=== PATIENT | female | born 1960 | race Caucasian/White ===

== ENCOUNTER → 2016-09-09 | Emergency (ER) | payer SELFPAY ==
[~2016-09-09] MED LIST: ACETAMINOPHEN 325 MG TABLET (FP) ONE; CALCIUM CARBONATE 650 MG TABLET PO ONE; CALCIUM GLUCONATE 10% - 1,000 MG/10 ML VIAL IVPB ONE; CALCIUM GLUCONATE 10% - 1,000 MG/10 ML VIAL ONE; CHOLECALCIFEROL (VITAMIN D3) 1,000 UNIT TABLET (FP) PO ONE; LOPERAMIDE HCL 2 MG CAPSULE ONE; LOPERAMIDE HCL 2 MG CAPSULE PO ONE; ONDANSETRON 4 MG/2 ML VIAL IVPUSH ONE; ONDANSETRON 8 MG TABLET (FP) PO ONE; POTASSIUM CHLORIDE TABS 10 MEQ TABLET.ER (FP) ONE; POTASSIUM CHLORIDE TABS 10 MEQ TABLET.ER (FP) PO ONE; SODIUM CHLORIDE 0.9% 1000 ML INFUS.BAG IV ONE
[2016-09-09 15:54] VITALS: TEMP 97.8; BMI 29.2
[2016-09-09 20:27] LABS: BASOPHIL 0.3 % (0-2.0); EOSINOPHIL 0.4 % (0-4.5); MCHC 33.7 g/dl (32.0-36.0); MEAN CELL VOLUME 85.9 fl (80-96); MEAN PLT VOLUME 7.5 fl (7.5-11.1); NEUTROPHILS 53.1 % (42.8-82.8); PLATELET COUNT 280 K/MM3 (134-434); RDW 13.4 % (11.6-15.6); WHITE BLOOD COUNT 10.9 K/mm3 (4.0-10.0)
[2016-09-09 21:36] VITALS: BP 149/85; PULSE 75
--- NOTE | 2016-09-09 21:42 | PDOC ---
History of Present Illness - General Chief Complaint: Diarrhea Stated Complaint: VOMITING Time Seen by Provider: 09/09/16 19:31 - History of Present Illness Initial Comments: 09/09/16 21:26 CHIEF COMPLAINT: diarrhea HISTORY OF PRESENT ILLNESS: 56 yo F with hx of IDDM, hypothyroidism presents to ED with diarrhea x 3 days. Patient reports that she has had countless episodes of diarrhea and a few episodes of vomiting. She has had a loss of appetite over the past few days and feels a little weak now. Her last bowel movement was here in this ER. She did not eat anything today but yesterday and the day before she had chicken tacos and rice and chicken. She denies any fever, chills , shortness of breath, chest pain, dizziness, rectal bleeding. No recent travel or sick contacts. PAST MEDICAL HISTORY: Denies past medical history FAMILY HISTORY: Denies SOCIAL HISTORY: Denies tobacco, alcohol, illicit drug use. SURGICAL HISTORY: cholecystectomy, tubal ligation ALLERGIES: No known drug allergies REVIEW OF SYSTEMS General/Constitutional: Weakness. Denies fever or chills. HEENT: Denies change in vision. Denies ear pain or discharge. Denies sore throat. Cardiovascular: Denies chest pain or shortness of breath. Respiratory: Denies cough, wheezing, or hemoptysis. Gastrointestinal: Vomiting and diarrhea x 3 days. Denies rectal bleeding. Genitourinary: Denies dysuria, frequency, or change in urination. Musculoskeletal: Denies joint or muscle swelling or pain. Denies neck or back pain. Skin: Denies rash or easy bruising. Neurologic: Denies headache, vertigo, loss of consciousness, or loss of sensation. PHYSICAL EXAM General Appearance: Well-appearing, appropriately dressed. No apparent distress. HEENT: EOMI, PERRLA, normal ENT inspection, normal voice, TMs normal, pharynx normal. No conjunctival pallor. No photophobia, scleral icterus. Respiratory/Chest: Lungs CTAB. Cardiovascular: RRR. S1, S2. Gastrointestinal/Abdominal: Normal bowel sounds. Abdomen soft, non-distended. No tenderness or rebound tenderness. No organomegaly, pulsatile mass, guarding, hernia, hepatomegaly, splenomegaly. Musculoskeletal/Extremities: Normal inspection. FROM of all extremities, normal capillary refill. Pelvis Stable. No CVA tenderness. No tenderness to extremities, pedal edema, swelling, erythema or deformity. Integumentary: Appropriate color, dry, warm. No cyanosis, erythema, jaundice or rash Neurologic: rehabilitation therapy aide II-XII intact. Fully oriented, alert. Appropriate mood/affect. Motor strength 5/5. No appreciable EOM palsy, facial droop or sensory deficit. 09/09/16 23:40 Past History - Past Medical History Allergies/Adverse Reactions: Allergies Allergy/AdvReac Type Severity Reaction Status Date / Time No Known Allergies Allergy Verified 09/09/16 15:54 Home Medications: Ambulatory Orders Calcium Carbonate/Vitamin D3 [Calcium 600 + Vit D 400 Softgl] 1 tab PO DAILY Levothyroxine [Synthroid -] 175 mcg PO DAILY 09/09/16 Loperamide HCl [Imodium -] 2 mg PO Q8H PRN #21 capsule 09/09/16 Metformin HCl [Glucophage] 1,000 mg PO BID 09/09/16 Diabetes: Yes Thyroid Disease: Yes - Surgical History Abdominal Surgery: (TUBAL) Cholecystectomy: Yes - Psycho/Social/Smoking Cessation Hx Suicidal Ideation: No Smoking History: Never smoked Information on smoking cessation initiated: No *Physical Exam - Vital Signs Last Vital Signs Temp Pulse Resp BP Pulse Ox 97.8 F 82 18 136/86 98 09/09/16 15:50 09/09/16 15:50 09/09/16 15:50 09/09/16 15:50 09/09/16 15:50 ED Treatment Course - LABORATORY CBC & Chemistry Diagram: 09/09/16 19:55 09/09/16 22:25 - ADDITIONAL ORDERS Additional order review: Laboratory Results 09/09/16 19:55 Sodium Cancelled Potassium Cancelled Chloride Cancelled Carbon Dioxide Cancelled Anion Gap Cancelled BUN Cancelled Creatinine Cancelled Creat Clearance w eGFR Cancelled Random Glucose Cancelled Calcium Cancelled Total Bilirubin Cancelled AST Cancelled ALT Cancelled Alkaline Phosphatase Cancelled Total Protein Cancelled Albumin Cancelled 09/09/16 19:55 RBC 4.80 MCV 85.9 MCHC 33.7 RDW 13.4 MPV 7.5 Neutrophils % 53.1 Lymphocytes % 40.9 H Monocytes % 5.3 Eosinophils % 0.4 Basophils % 0.3 - Medications Given in the ED: ED Medications Discontinued Medications Generic Name Dose Route Start Last Admin Trade Name Freq PRN Reason Stop Dose Admin Loperamide HCl 4 mg 09/09/16 20:20 09/09/16 20:35 Imodium - PO 09/09/16 20:21 4 mg ONCE ONE Administration Ondansetron HCl 8 mg 09/09/16 20:20 09/09/16 20:35 Zofran Injection IVPUSH 09/09/16 20:21 8 mg ONCE ONE Administration Sodium Chloride 1,000 ml 09/09/16 19:37 09/09/16 20:08 Normal Saline - IV 09/09/16 19:38 1,000 ml ONCE ONE Administration Medical Decision Making - Medical Decision Making 09/09/16 23:40 56 yo F with hx of IDDM, hypothyroidism presents to ED with diarrhea x 3 days. -CBC, CMP -IVF, Zofran, Immodium Labs: WBC 10.9, K 3.4, Ca 6.6 -Calcium carbonate, Vit D -KCl Advised patient to take medication as prescribe and follow up with PCP for further evaluation of electrolyte abnormalities. Advised patient of signs and symptoms for return to ER; patient verbalized understanding and agrees to plan. *DC/Admit/Observation/Transfer Diagnosis at time of Disposition: Gastroenteritis - Discharge Dispostion Disposition: HOME Condition at time of disposition: Improved Admit: No - Prescriptions Prescriptions: Loperamide HCl [Imodium -] 2 mg PO Q8H PRN #21 capsule PRN Reason: Diarrhea - Patient Instructions Printed Discharge Instructions: DI for Viral Gastroenteritis -- Adult Additional Instructions: Please take medication as prescribed and follow up with your primary care doctor this week for further evaluation of your low calcium. You need to start taking supplements for this. If you experience any dizziness, lightheadeness, chest pain, shortness of breath, or you are unable to tolerate any food or fluids even after taking the medication prescribed, please return to the ER.
[2016-09-09 21:53] LABS: URINE APPEARANCE CLEAR; URINE BILIRUBIN NEGATIVE (NEGATIVE); URINE BLOOD NEGATIVE (NEGATIVE); URINE COLOR LTYELLOW; URINE GLUCOSE (UA) NEGATIVE (NEGATIVE); URINE KETONE 1+ (NEGATIVE); URINE NITRITE NEGATIVE (NEGATIVE); URINE PROTEIN NEGATIVE (NEGATIVE); URINE UROBILINOGEN NEGATIVE E.U./dl (0.2-1.0)
[2016-09-09 22:05] LABS: URINE LEUK ESTERASE 1+ (NEGATIVE)
[2016-09-09 22:07] LABS: URINE MUCUS FEW; URINE RBC 2 /hpf (0-3); URINE WBC 20 /hpf (3-5)
--- NOTE | 2016-09-09 23:09 | PDOC ---
[id number] 98 09/09/16 15:50 09/09/16 21:35 09/09/16 21:35 09/09/16 21:35 09/09/16 21:35 ED Treatment Course - LABORATORY CBC & Chemistry Diagram: 09/09/16 19:55 09/09/16 22:25 - ADDITIONAL ORDERS Additional order review: Laboratory Results 09/09/16 09/09/16 21:42 19:55 Sodium Cancelled Potassium Cancelled Chloride Cancelled Carbon Dioxide Cancelled Anion Gap Cancelled BUN Cancelled Creatinine Cancelled Creat Clearance w eGFR Cancelled Random Glucose Cancelled Calcium Cancelled Total Bilirubin Cancelled AST Cancelled ALT Cancelled Alkaline Phosphatase Cancelled Total Protein Cancelled Albumin Cancelled Urine Color Ltyellow Urine Appearance Clear Urine pH 5.0 Urine Protein Negative Urine Glucose (UA) Negative Urine Ketones 1+ H Urine Blood Negative Urine Nitrite Negative Urine Bilirubin Negative Urine Urobilinogen Negative Ur Leukocyte Esterase 1+ H Urine RBC 2 Urine WBC 20 Ur Epithelial Cells Rare Urine Mucus Few 09/09/16 19:55 RBC 4.80 MCV 85.9 MCHC 33.7 RDW 13.4 MPV 7.5 Neutrophils % 53.1 Lymphocytes % 40.9 H Monocytes % 5.3 Eosinophils % 0.4 Basophils % 0.3 - Medications Given in the ED: ED Medications Discontinued Medications Generic Name Dose Route Start Last Admin Trade Name Freq PRN Reason Stop Dose Admin Loperamide HCl 4 mg 09/09/16 20:20 09/09/16 20:35 Imodium - PO 09/09/16 20:21 4 mg ONCE ONE Administration Ondansetron HCl 8 mg 09/09/16 20:20 09/09/16 20:35 Zofran Injection IVPUSH 09/09/16 20:21 8 mg ONCE ONE Administration Sodium Chloride 1,000 ml 09/09/16 19:37 09/09/16 20:08 Normal Saline - IV 09/09/16 19:38 1,000 ml ONCE ONE Administration Medical Decision Making - Medical Decision Making 09/09/16 23:09 agree with care from CHRISTO Elizondo *DC/Admit/Observation/Transfer Diagnosis at time of Disposition: Gastroenteritis - Discharge Dispostion Disposition: HOME Condition at time of disposition: Improved - Prescriptions Prescriptions: Loperamide HCl [Imodium -] 2 mg PO Q8H PRN #21 capsule PRN Reason: Diarrhea - Patient Instructions Printed Discharge Instructions: DI for Viral Gastroenteritis -- Adult Additional Instructions: Please take medication as prescribed and follow up with your primary care doctor this week for further evaluation of your low calcium. You need to start taking supplements for this. If you experience any dizziness, lightheadeness, chest pain, shortness of breath, or you are unable to tolerate any food or fluids even after taking the medication prescribed, please return to the ER.
[2016-09-09 23:28] LABS: ALBUMIN 2.9 g/dl (3.4-5.0); ANION GAP 15 (8-16); CO2 20 mmol/L (21-32); COCKROFT - GAULT 230.2565; CREATININE 0.3 mg/dL (0.55-1.02); GLUCOSE,RANDOM 103 mg/dL (74-106); SGOT/AST 14 U/L (15-37); SGPT/ALT 15 U/L (12-78)
[2016-09-09 23:29] LABS: ALK PHOS 80 U/L (45-117); BILIRUBIN,TOTAL 0.6 mg/dL (0.2-1.0); TOT PROT 5.6 g/dl (6.4-8.2)
[2016-09-09 23:32] LABS: CALCIUM 6.6 mg/dL (8.5-10.1)
== END | disposition home or self-care (01) ==
LOC: JER 15:44
PROC: 3E033GC Introduction of Other Therapeutic Substance into Peripheral Vein, Percutaneous Approach (ICD-10-PCS; principal; 2016-09-09)
DX: K52.9 Noninfective gastroenteritis and colitis, unspecified (principal); E11.9 Type 2 diabetes mellitus without complications; Z79.4 Long term (current) use of insulin; E03.9 Hypothyroidism, unspecified
CPT/HCPCS: 36415; 80053; 81003; 81015; 84703; 85025; 87086; 99282-25

== ENCOUNTER 2017-01-02 00:28 | Emergency (ER) | payer SELFPAY ==
[2017-01-02 00:47] VITALS: BP 145/75; PULSE 61; TEMP 97.5; BMI 26.4
[2017-01-02] MEDS ORDERED: METOCLOPRAMIDE HCL INJECTION 10 MG/2 ML VIAL IVPUSH ONE (01:14)
[2017-01-02] MEDS ORDERED: METOCLOPRAMIDE HCL INJECTION 10 MG/2 ML VIAL ONE (01:22)
--- NOTE | 2017-01-02 01:22 | PDOC ---
History of Present Illness - General History Source: Patient Exam Limitations: No Limitations - History of Present Illness Initial Comments: 01/02/17 01:31 The patient is a 56 year old female, with a significant past medical history of IDDM, hypothyroidism who presents to the emergency department with elevated blood glucose. Patient is accompanied by son who states she has been compliant with her insulin since this afternoon however her BGM has been reading over range today. Patient also complains of headache with associated nausea but no lightheadedness, vomitting or dizziness. Patients son states she was recently ill with high fevers last week and presents to the ED for further evaluation. She denies chest pain or SOB. She denies abdominal pain, vomit, diarrhea or constipation. She denies dysuria, frequency, urgency or hematuria. Allergies: NKA Past surgical history: Tubal ligation, cholecystectomy Social history: None <Annmarie Rodriguez - Last Filed: 01/02/17 01:48> <Mahogany Dean - Last Filed: 01/05/17 09:11> - General Chief Complaint: Blood Sugar Problem Stated Complaint: ELEVATED SUGAR Past History <Annmaire Rodriguez - Last Filed: 01/02/17 01:48> - Past Medical History Diabetes: Yes Thyroid Disease: Yes - Surgical History Abdominal Surgery: (TUBAL) Cholecystectomy: Yes - Psycho/Social/Smoking Cessation Hx Suicidal Ideation: No Smoking History: Never smoked Have you smoked in the past 12 months: No Information on smoking cessation initiated: No Hx Alcohol Use: No Drug/Substance Use Hx: No <Mahogany Dean - Last Filed: 01/05/17 09:11> - Past Medical History Allergies/Adverse Reactions: Allergies Allergy/AdvReac Type Severity Reaction Status Date / Time No Known Allergies Allergy Verified 01/02/17 00:45 Home Medications: Ambulatory Orders Calcium Carbonate/Vitamin D3 [Calcium 600 + Vit D 400 Softgl] 1 tab PO DAILY Levothyroxine [Synthroid -] 175 mcg PO DAILY 09/09/16 Loperamide HCl [Imodium -] 2 mg PO Q8H PRN #21 capsule 09/09/16 Metformin HCl [Glucophage] 1,000 mg PO BID 09/09/16 Azithromycin [Zithromax -] 250 mg PO UTDICT #6 tab 01/02/17 Review of Systems - Review of Systems Able to Perform ROS?: Yes Comments:: 01/02/17 01:31 CONSTITUTIONAL: Absent: fever, chills, diaphoresis, generalized weakness, malaise, loss of appetite HEENT: Absent: rhinorrhea, nasal congestion, throat pain, throat swelling, difficulty swallowing, mouth swelling, ear pain, eye pain, visual Changes CARDIOVASCULAR: Absent: chest pain, syncope, palpitations, irregular heart rate, lightheadedness , peripheral edema RESPIRATORY: Absent: cough, shortness of breath, dyspnea with exertion, orthopnea, wheezing, stridor, hemoptysis GASTROINTESTINAL: +nausea Absent: abdominal pain, abdominal distension, vomiting, diarrhea, constipation, melena, hematochezia GENITOURINARY: Absent: dysuria, frequency, urgency, hesitancy, hematuria, flank pain, genital pain MUSCULOSKELETAL: Absent: myalgia, arthralgia, joint swelling SKIN: Absent: rash, itching, pallor HEMATOLOGIC/IMMUNOLOGIC: Absent: easy bleeding, easy bruising, lymphadenopathy, frequent infections ENDOCRINE: Absent: unexplained weight gain, unexplained weight loss, heat intolerance, cold intolerance NEUROLOGIC: +headache. Absent: focal weakness or paresthesias, dizziness, unsteady gait, seizure, mental status changes, bladder or bowel incontinence PSYCHIATRIC: Absent: anxiety, depression, suicidal or homicidal ideation, hallucinations. <Annmarie Rodriguez - Last Filed: 01/02/17 01:48> *Physical Exam - Vital Signs Last Vital Signs Temp Pulse Resp BP Pulse Ox 97.5 F L 61 20 145/75 99 01/02/17 00:45 01/02/17 00:45 01/02/17 00:45 01/02/17 00:45 01/02/17 00:45 - Physical Exam Comments: 01/02/17 01:33 GENERAL: Well developed, well nourished. Awake and alert. No acute distress. HEENT: Normocephalic, atraumatic. PERRLA, EOMI. No conjunctival pallor. Sclera are non- icteric. Moist mucous membranes. Oropharynx is clear. NECK: Supple. Full ROM. No JVD. Carotid pulses 2+ and symmetric, without bruits. No thyromegaly. No lymphadenopathy. CARDIOVASCULAR: Regular rate and rhythm. No murmurs, rubs, or gallops. Distal pulses are 2+ and symmetric. PULMONARY: No evidence of respiratory distress. Lungs clear to auscultation bilaterally. No wheezing, rales or rhonchi. ABDOMINAL: Soft. Non-tender. Non-distended. No rebound or guarding. No organomegaly. Normoactive bowel sounds. MUSCULOSKELETAL Normal range of motion at all joints. No bony deformities or tenderness. No CVA tenderness. EXTREMITIES: No cyanosis. No clubbing. No edema. No calf tenderness. SKIN: Warm and dry. Normal capillary refill. No rashes. No jaundice. NEUROLOGICAL: Alert, awake, appropriate. Cranial nerves 2-12 intact. No deficits to light touch and temperature in face, upper extremities and lower extremities. No motor deficits in the in face, upper extremities and lower extremities. Normoreflexic in the upper and lower extremities. Normal speech. Toes are downgoing bilaterally. Gait is normal without ataxia. PSYCHIATRIC: Cooperative. Good eye contact. Appropriate mood and affect. <Annmarie Rodriguez - Last Filed: 01/02/17 01:48> - Vital Signs Last Vital Signs Temp Pulse Resp BP Pulse Ox 97.5 F L 61 20 145/75 99 01/02/17 00:45 01/02/17 00:45 01/02/17 00:45 01/02/17 00:45 01/02/17 00:45 <Mahogany Dean - Last Filed: 01/05/17 09:11> ED Treatment Course - LABORATORY CBC & Chemistry Diagram: 01/02/17 01:15 01/02/17 01:15 - ADDITIONAL ORDERS Additional order review: Laboratory Results 01/02/17 01:20 VBG pH 7.26 L POC VBG pCO2 57.6 H POC VBG pO2 34.7 Mixed VBG HCO3 25.2 H 01/02/17 01:15 RBC 4.39 MCV 88.0 MCHC 33.9 RDW 13.0 MPV 7.9 Neutrophils % 49.8 Lymphocytes % 43.0 H Monocytes % 5.9 Eosinophils % 0.8 D Basophils % 0.5 - Medications Given in the ED: ED Medications Discontinued Medications Generic Name Dose Route Start Last Admin Trade Name Freq PRN Reason Stop Dose Admin Diphenhydramine HCl 12.5 mg 01/02/17 01:15 01/02/17 01:28 Benadryl Injection - IVPUSH 01/02/17 01:16 12.5 mg ONCE ONE Administration Metoclopramide HCl 10 mg 01/02/17 01:14 01/02/17 01:28 Reglan Injection - IVPUSH 01/02/17 01:15 10 mg ONCE ONE Administration <Annmarie Rodriguez - Last Filed: 01/02/17 01:48> - LABORATORY CBC & Chemistry Diagram: 01/02/17 01:15 01/02/17 04:11 - RADIOLOGY Radiology Studies Ordered: Category Date Time Status CHEST X-RAY PORTABLE* [RAD] Stat Radiology 01/02/17 01:15 Ordered <Mahogany Dean - Last Filed: 01/05/17 09:11> Medical Decision Making - Medical Decision Making 01/02/17 01:17 56yo female with hyperglycemia -pt with hx of DM. Used insulin 20 units at 11p and still with hyperglycemia - undetectable on glucometer -labs -ekg -cxr -ua urinary freq - poss secondary to hyperglycemia vs infection 01/02/17 01:55a pt signed out to the oncoming ED physician pending lab results and further eval. <Mahogany Dean - Last Filed: 01/05/17 09:11> *DC/Admit/Observation/Transfer - Attestations Scribe Attestion: 01/02/17 01:33 Documentation prepared by Annmarie Rodriguez, acting as biomedical service engineer for Mahogany Dean DO <Annmarie Rodriguez - Last Filed: 01/02/17 01:48> - Attestations Physician Attestion: 01/02/17 01:17 I, Dr. Mahogany Dean DO, attest that this document has been prepared under my direction and personally reviewed by me in its entirety. I further attest, that it accurately reflects all work, treatment, procedures and medical decision -making performed by me. <Mahogany Dean - Last Filed: 01/05/17 09:11> Diagnosis at time of Disposition: Hyperglycemia Upper respiratory infection Qualifiers: URI type: unspecified URI Qualified Code(s): J06.9 - Acute upper respiratory infection, unspecified - Discharge Dispostion Disposition: HOME - Prescriptions Prescriptions: Azithromycin [Zithromax -] 250 mg PO UTDICT #6 tab - Patient Instructions Printed Discharge Instructions: DI for Viral Upper Respiratory Infection -- Adult, DI for Hyperglycemia -- Adult Additional Instructions: take medication as directed. Follow up with your doctor to evaluation the control of your sugar Print Language: YORUBA
[2017-01-02 01:24] LABS: BASOPHIL 0.5 % (0-2.0); EOSINOPHIL 0.8 % (0-4.5); MCH 29.8 pg (25.7-33.7); MCHC 33.9 g/dl (32.0-36.0); MEAN PLT VOLUME 7.9 fl (7.5-11.1); NEUTROPHILS 49.8 % (42.8-82.8); PLATELET COUNT 249 K/MM3 (134-434); WHITE BLOOD COUNT 8.4 K/mm3 (4.0-10.0)
[2017-01-02 01:27] LABS: VENOUS BLOOD GAS HCO3 25.2 meq/L (19-25); VENOUS PH 7.26 (7.32-7.42)
[2017-01-02] MEDS ORDERED: ALBUTEROL SO4 2.5/IPRATROPIUM 0.5 INH SOL 3 ML VIAL.NEB. NEB ONE ×2 (01:35→01:48)
[2017-01-02 01:48] LABS: ALBUMIN 3.7 g/dl (3.4-5.0); ANION GAP 9 (8-16); BILIRUBIN,TOTAL 0.3 mg/dL (0.2-1.0); CALCIUM 8.6 mg/dL (8.5-10.1); CO2 29 mmol/L (21-32); CREATININE 0.7 mg/dL (0.55-1.02); MAGNESIUM 2.1 mg/dL (1.8-2.4); SGOT/AST 18 U/L (15-37); SGPT/ALT 36 U/L (12-78); TOT PROT 7.4 g/dl (6.4-8.2)
[2017-01-02 01:49] LABS: ALK PHOS 136 U/L (45-117)
[2017-01-02 01:52] LABS: GLUCOSE,RANDOM 521 mg/dL (74-106)
[2017-01-02 02:06] LABS: URINE APPEARANCE CLEAR; URINE BILIRUBIN NEGATIVE (NEGATIVE); URINE BLOOD NEGATIVE (NEGATIVE); URINE COLOR COLORLESS; URINE GLUCOSE (UA) 3+ (NEGATIVE); URINE KETONE NEGATIVE (NEGATIVE); URINE LEUK ESTERASE TRACE (NEGATIVE); URINE NITRITE NEGATIVE (NEGATIVE); URINE PROTEIN NEGATIVE (NEGATIVE); URINE UROBILINOGEN NEGATIVE mg/dL (0.2-1.0)
[2017-01-02 02:13] LABS: URINE RBC <1 /hpf (0-3); URINE WBC 4 /hpf (3-5)
[2017-01-02] MEDS ORDERED: INSULIN REGULAR HUMAN 100 UNITS/ML *VIAL IVPUSH ONE (02:48)
[2017-01-02 05:14] LABS: ALBUMIN 3.5 g/dl (3.4-5.0); ANION GAP 11 (8-16); BILIRUBIN,TOTAL 0.2 mg/dL (0.2-1.0); CALCIUM 8.3 mg/dL (8.5-10.1); CO2 27 mmol/L (21-32); CREATININE 0.5 mg/dL (0.55-1.02); GLUCOSE,RANDOM 171 mg/dL (74-106); MAGNESIUM 1.9 mg/dL (1.8-2.4); SGOT/AST 17 U/L (15-37); SGPT/ALT 34 U/L (12-78)
[2017-01-02 05:15] LABS: ALK PHOS 109 U/L (45-117)
[2017-01-02] MEDS ORDERED: AZITHROMYCIN 250 MG TABLET PO STA (05:43)
[2017-01-02] MEDS ORDERED: AZITHROMYCIN 250 MG TABLET ONE (05:48)
--- NOTE | 2017-01-02 05:50 | PDOC ---
*Physical Exam - Vital Signs Last Vital Signs Temp Pulse Resp BP Pulse Ox 97.5 F L 61 20 145/75 99 01/02/17 00:45 01/02/17 00:45 01/02/17 00:45 01/02/17 00:45 01/02/17 00:45 ED Treatment Course - LABORATORY CBC & Chemistry Diagram: 01/02/17 01:15 01/02/17 04:11 - ADDITIONAL ORDERS Additional order review: Laboratory Results 01/02/17 01/02/17 01/02/17 04:11 02:00 02:00 VBG pH POC VBG pCO2 POC VBG pO2 Mixed VBG HCO3 Sodium 143 Potassium 3.4 L Chloride 105 D Carbon Dioxide 27 Anion Gap 11 BUN 10 Creatinine 0.5 L D Creat Clearance w eGFR > 60 Random Glucose 171 H D Calcium 8.3 L Magnesium 1.9 Total Bilirubin 0.2 D AST 17 ALT 34 Alkaline Phosphatase 109 Total Protein 7.0 Albumin 3.5 Lipase Urine Color Colorless Urine Appearance Clear Urine pH 5.0 Urine Protein Negative Urine Glucose (UA) 3+ H Urine Ketones Negative Urine Blood Negative Urine Nitrite Negative Urine Bilirubin Negative Urine Urobilinogen Negative Ur Leukocyte Esterase Trace Urine RBC <1 Urine WBC 4 Urine HCG, Qual Negative 01/02/17 01/02/17 01:20 01:15 VBG pH 7.26 L POC VBG pCO2 57.6 H POC VBG pO2 34.7 Mixed VBG HCO3 25.2 H Sodium 133 L Potassium 4.2 D Chloride 95 L D Carbon Dioxide 29 D Anion Gap 9 BUN 10 D Creatinine 0.7 D Creat Clearance w eGFR > 60 Random Glucose 521 H* D Calcium 8.6 D Magnesium 2.1 Total Bilirubin 0.3 D AST 18 D ALT 36 D Alkaline Phosphatase 136 H D Total Protein 7.4 D Albumin 3.7 D Lipase 313 Urine Color Urine Appearance Urine pH Urine Protein Urine Glucose (UA) Urine Ketones Urine Blood Urine Nitrite Urine Bilirubin Urine Urobilinogen Ur Leukocyte Esterase Urine RBC Urine WBC Urine HCG, Qual 01/02/17 01:15 RBC 4.39 MCV 88.0 MCHC 33.9 RDW 13.0 MPV 7.9 Neutrophils % 49.8 Lymphocytes % 43.0 H Monocytes % 5.9 Eosinophils % 0.8 D Basophils % 0.5 - Medications Given in the ED: ED Medications Discontinued Medications Generic Name Dose Route Start Last Admin Trade Name Freq PRN Reason Stop Dose Admin Albuterol/Ipratropium 1 amp 01/02/17 01:35 01/02/17 02:11 Duoneb - NEB 01/02/17 01:36 1 amp ONCE ONE Administration Diphenhydramine HCl 12.5 mg 01/02/17 01:15 01/02/17 01:28 Benadryl Injection - IVPUSH 01/02/17 01:16 12.5 mg ONCE ONE Administration Insulin Human Regular 6 units 01/02/17 02:48 01/02/17 02:57 Novolin R Vial *For Ivpush Or Iv Drip Only* IVPUSH 01/02/17 02:49 6 unit ONCE ONE Administration Metoclopramide HCl 10 mg 01/02/17 01:14 01/02/17 01:28 Reglan Injection - IVPUSH 01/02/17 01:15 10 mg ONCE ONE Administration *DC/Admit/Observation/Transfer Diagnosis at time of Disposition: Hyperglycemia Upper respiratory tract infection Qualifiers: URI type: unspecified URI Qualified Code(s): J06.9 - Acute upper respiratory infection, unspecified - Discharge Dispostion Disposition: HOME Condition at time of disposition: Stable Admit: No - Prescriptions Prescriptions: Azithromycin [Zithromax -] 250 mg PO UTDICT #6 tab - Patient Instructions Printed Discharge Instructions: DI for Hyperglycemia -- Adult, DI for Viral Upper Respiratory Infection -- Adult Additional Instructions: take medication as directed. Follow up with your doctor to evaluation the control of your sugar Print Language: STATELESS
[2017-01-02] MEDS ORDERED: POTASSIUM CHLORIDE TABS 20 MEQ TABLET.ER (FP) PO ONE ×2 (05:52→06:01)
[2017-01-02 06:02] LABS: VENOUS BLOOD GAS HCO3 28.1 meq/L (19-25); VENOUS PH 7.39 (7.32-7.42)
--- NOTE | 2017-01-02 08:50 | EKG ---
Test Reason : Blood Pressure : / mmHG Vent. Rate : 055 BPM Atrial Rate : 055 BPM P-R Int : 188 ms QRS Dur : 092 ms QT Int : 442 ms P-R-T Axes : 030 059 063 degrees QTc Int : 422 ms SINUS BRADYCARDIA NONSPECIFIC T WAVE ABNORMALITY ABNORMAL ECG NO PREVIOUS ECGS AVAILABLE Confirmed by FIONA TRACEY MD ([id number]) on 01/02/2017 8:50:06 AM Referred By: Confirmed By:FIONA TRACEY MD
== END 2017-01-02 06:06 | disposition home or self-care (01) ==
LOC: JER 00:28
PROC: 3E0F7GC Introduction of Other Therapeutic Substance into Respiratory Tract, Via Natural or Artificial Opening (ICD-10-PCS; principal; 2017-01-02)
PROC: 3E033GC Introduction of Other Therapeutic Substance into Peripheral Vein, Percutaneous Approach (ICD-10-PCS; 2017-01-02)
PROC: 3E033GC Introduction of Other Therapeutic Substance into Peripheral Vein, Percutaneous Approach (ICD-10-PCS; 2017-01-02)
PROC: 3E033VG Introduction of Insulin into Peripheral Vein, Percutaneous Approach (ICD-10-PCS; 2017-01-02)
DX: E11.65 Type 2 diabetes mellitus with hyperglycemia (principal); Z79.4 Long term (current) use of insulin
CPT/HCPCS: 36415; 71010-TC; 80053; 81003; 81015; 82803; 83690; 83735; 84703; 85025; 93005; 93010; 99283-25

== ENCOUNTER 2019-02-19 16:28 | Emergency (ER) | payer SELFPAY ==
[2019-02-19 16:41] VITALS: BP 134/69; PULSE 73; TEMP 97.5; BMI 30.2
--- NOTE | 2019-02-19 17:22 | PDOC ---
History of Present Illness - General History Source: Patient Exam Limitations: Clinical Condition - History of Present Illness Initial Comments: 02/19/19 17:24 Patient with past medical history of hypertension, insulin-dependent diabetes, hyperlipidemia and osteoporosis on Fosamax and calcium supplement presented with complaint of 1 month history of persistent bilateral knee pain and heaviness going down bilateral lower leg which is worse with ambulation. Patient reports taking rnro-ydy-fgdsasn medication like Motrin and Aleve without relief. Patient report intermittent tingling sensation in bilateral legs. Denies any trauma or injury. Is this a multiple visit Asthma Patient?: No <Alli Urrutia - Last Filed: 02/19/19 20:24> <Soto Seymour - Last Filed: 02/19/19 23:18> - General Chief Complaint: Pain Stated Complaint: LEG PAIN Time Seen by Provider: 02/19/19 16:51 Past History - Past Medical History Diabetes: Yes Thyroid Disease: Yes - Surgical History Abdominal Surgery: (TUBAL) Cholecystectomy: Yes - Psycho Social/Smoking Cessation Hx Smoking History: Never smoked Have you smoked in the past 12 months: No Hx Alcohol Use: No Drug/Substance Use Hx: No <Alli Urrutia - Last Filed: 02/19/19 20:24> <Soto Seymour - Last Filed: 02/19/19 23:18> - Past Medical History Allergies/Adverse Reactions: Allergies Allergy/AdvReac Type Severity Reaction Status Date / Time No Known Allergies Allergy Verified 02/19/19 16:36 Home Medications: Ambulatory Orders Calcium Carbonate/Vitamin D3 [Calcium 600 + Vit D 400 Softgl] 1 tab PO DAILY Levothyroxine [Synthroid -] 175 mcg PO DAILY 09/09/16 Alendronate Sodium [Fosamax] 1 tab WEEKLY 02/19/19 Gabapentin [Neurontin] 300 mg PO Q8H PRN #20 capsule 02/19/19 Insulin NPH Hum/Reg Insulin Hm [Novolin 70-30 Flexpen] 20 unit SQ ASDIR Review of Systems - Review of Systems Able to Perform ROS?: Yes Is the patient limited [place]an proficient: No Constitutional: No: Chills, Fever, Malaise HEENTM: No: Symptoms Reported, See HPI, Eye Pain, Blurred Vision, Tearing, Recent change in vision, Double Vision, Cataracts, Ear Pain, Ocular Prothesis, Ear Discharge, Nose Pain, Nose Congestion, Tinnitus, Nose Bleeding, Hearing Loss , Throat Pain, Throat Swelling, Mouth Pain, Dental Problems, Difficulty Swallowing, Mouth Swelling, Other Respiratory: No: Symptoms reported, See HPI, Cough, Orthopnea, Shortness of Breath, SOB with Exertion, SOB at Rest, Stridor, Wheezing, Productive cough, Hemoptysis, Other Cardiac (ROS): No: Symptoms Reported, See HPI, Chest Pain, Edema, Irregular Heart Rate, Lightheadedness, Palpitations, Syncope, Chest Tightness, Other ABD/GI: No: Nausea, Vomiting Musculoskeletal: Yes: Symptoms Reported, See HPI, Joint Pain (b/l knee pain), Muscle Pain (b/l calf muscle pain and heaviness). No: Joint Swelling, Muscle Weakness Integumentary: No: Symptoms Reported, Change in Color, Erythema Neurological: Yes: Symptoms reported (b/l lower legs), Tingling. No: Numbness, Paresthesia, Weakness All Other Systems: Reviewed and Negative <Alli Urrutia - Last Filed: 02/19/19 20:24> *Physical Exam - Vital Signs Last Vital Signs Temp Pulse Resp BP Pulse Ox 97.5 F L 73 18 134/69 98 02/19/19 16:38 02/19/19 16:38 02/19/19 16:38 02/19/19 16:38 02/19/19 16:38 - Physical Exam Comments: 02/19/19 17:18 GENERAL: Well developed, well nourished. Awake and alert. No acute distress. CARDIOVASCULAR: Regular rate and rhythm. No murmurs, rubs, or gallops. PULMONARY: No evidence of respiratory distress. MUSCULOSKELETAL : mild tenderness over posterior popliteal fossa and whole b/l lower leg EXTREMITIES: No cyanosis. No clubbing. No edema. mild subjective b/l calf tenderness. SKIN: Warm and dry. Normal capillary refill. No increased warmth. NEUROLOGICAL: Alert, awake, appropriate. No motor deficits in the lower extremities. Gait is normal without ataxia. PSYCHIATRIC: Cooperative. Good eye contact. Appropriate mood and affect. General Appearance: Yes: Nourished, Appropriately Dressed. No: Apparent Distress <Alli Urrutia - Last Filed: 02/19/19 20:24> - Vital Signs Last Vital Signs Temp Pulse Resp BP Pulse Ox 97.5 F L 73 18 134/69 98 02/19/19 16:38 02/19/19 16:38 02/19/19 16:38 02/19/19 16:38 02/19/19 16:38 <Soto Seymour - Last Filed: 02/19/19 23:18> ED Treatment Course - RADIOLOGY Radiology Studies Ordered: Category Date Time Status DUPLEX VASCUL US-2LEGS [US] Stat Ultrasound 02/19/19 17:13 Ordered <Alli Urrutia - Last Filed: 02/19/19 20:24> - Medications Given in the ED: ED Medications Discontinued Medications Generic Name Dose Route Start Last Admin Trade Name Freq PRN Reason Stop Dose Admin Gabapentin 300 mg 02/19/19 20:03 02/19/19 20:18 Neurontin - PO 02/19/19 20:04 300 mg ONCE ONE Administration <Soto Seymour - Last Filed: 02/19/19 23:18> Medical Decision Making - Medical Decision Making 02/19/19 17:26 Patient with past medical history of hypertension, insulin-dependent diabetes, hyperlipidemia and osteoporosis on Fosamax and calcium supplement presented with complaint of 1 month history of persistent bilateral knee pain and heaviness going down bilateral lower leg which is worse with ambulation. Patient reports taking usbi-xyb-heqpdnz medication like Motrin and Aleve without relief. Patient report intermittent tingling sensation in bilateral legs. Denies any trauma or injury. Exam significant for mild subjective tenderness to bilateral anterior patella, bilateral calf muscle and whole bilateral leg. No swelling or increased warmth to bilateral lower extremities. Negative Homans sign to bilateral lower extremity. Symptoms likely diabetic neuropathy versus less likely DVT. Duplex ultrasound ordered to rule out DVT. Patient be discharged home on gabapentin with neurology follow-up if negative ultrasound. 02/19/19 20:00 Duplex ultrasound negative for DVT. Patient symptoms likely diabetic neuropathy. Patient stable for discharge on gabapentin for diabetic neuropathy with neurology follow-up <Alli Urrutia - Last Filed: 02/19/19 20:24> - Medical Decision Making 02/19/19 23:18 I reviewed the case of the mid-level practitioner and was available for consultation while in the emergency department <Soto Seymour - Last Filed: 02/19/19 23:18> Discharge - Discharge Information Problems reviewed: Yes - Admission No <Alli Urrutia - Last Filed: 02/19/19 20:24> <Soto Seymour - Last Filed: 02/19/19 23:18> - Discharge Information Clinical Impression/Diagnosis: Diabetes mellitus, insulin dependent (IDDM), uncontrolled, Leg pain, bilateral Diabetic neuropathy Qualifiers: Diabetes mellitus type: type 2 Diabetes mellitus complication detail: with other neurological complication Qualified Code(s): E11.49 - Type 2 diabetes mellitus with other diabetic neurological complication Condition: Stable Disposition: HOME - Additional Discharge Information Prescriptions: Gabapentin [Neurontin] 300 mg PO Q8H PRN #20 capsule PRN Reason: leg pain - Follow up/Referral Referrals: Duarte Bailey MD [Staff Physician] - - Patient Discharge Instructions Patient Printed Discharge Instructions: DI for Diabetic Neuropathy Additional Instructions: Your leg ultrasound was normal and shows no blood clots. Your symptoms is likely caused by nerve pain. Take prescribed medications as needed for pain. Follow-up with referred neurologist as soon as possible for nerve pain Print Language: SRI LANKAN
[2019-02-19] MEDS ORDERED: GABAPENTIN 300 MG CAPSULE (FP) PO ONE (20:03)
[2019-02-19] MEDS ORDERED: GABAPENTIN 100 MG CAPSULE (FP) ONE (20:10)
== END 2019-02-19 20:18 | disposition home or self-care (01) ==
LOC: JER 16:28
DX: E11.40 Type 2 diabetes mellitus with diabetic neuropathy, unspecified (principal); Z79.1 Long term (current) use of non-steroidal anti-inflammatories (NSAID); I10 Essential (primary) hypertension; E78.5 Hyperlipidemia, unspecified; M81.8 Other osteoporosis without current pathological fracture
CPT/HCPCS: 93970-TC; 99281-25

== ENCOUNTER 2020-01-19 17:09 | Emergency (ER) | payer OTHER ==
[2020-01-19 17:19] VITALS: BP 131/86; PULSE 71; TEMP 97.8; BMI 34.6
--- NOTE | 2020-01-19 18:23 | PDOC ---
History of Present Illness - General Chief Complaint: Nasal Bleeding Stated Complaint: NOSE BLEED Time Seen by Provider: 01/19/20 18:01 History Source: Patient Exam Limitations: No Limitations - History of Present Illness Initial Comments: 01/19/20 18:19 59-year-old Bhutanese-speaking female history of hypertension and diabetes presents complaining of intermittent epistaxis x 3 days. Patient denies trauma, shortness of breath, chest pain, dizziness, palpitations, abdominal pain or any other complaints. Patient scheduled a follow-up appointment for January 26, 2020. ROS: as above PE: GENERAL: well-appearing, NAD HEAD: NCAT EYES: Pupils equal, round and reactive to light, sclera anicteric, conjunctiva clear ENT: Right nasal polyp noted, no active epistaxis, no septal hematoma, pharynx: no erythema, no exudate, uvula midline NECK: supple CHEST: nontender RESP: clear, no w/r/r CARDIO: rrr, no m/g/r ABD: +BS, soft, nontender, non distended BACK: no midline spinal ttp, no CVAT EXTREMITIES: Normal range of motion, no edema NEUROLOGICAL: Normal speech, normal gait SKIN: Warm, Dry Is this a multiple visit Asthma Patient?: No Past History - Medical History Allergies/Adverse Reactions: Allergies Allergy/AdvReac Type Severity Reaction Status Date / Time No Known Allergies Allergy Verified 01/19/20 17:14 Home Medications: Ambulatory Orders Calcium Carbonate/Vitamin D3 [Calcium 600 + Vit D 400 Softgl] 1 tab PO DAILY 09/09/16 Levothyroxine [Synthroid -] 175 mcg PO DAILY 09/09/16 Alendronate Sodium [Fosamax] 1 tab WEEKLY 02/19/19 Gabapentin [Neurontin] 300 mg PO Q8H PRN #20 capsule 02/19/19 Insulin NPH Hum/Reg Insulin Hm [Novolin 70-30 Flexpen] 20 unit SQ ASDIR 02/19/19 COPD: No Diabetes: Yes Thyroid Disease: Yes - Surgical History Abdominal Surgery: (TUBAL) Cholecystectomy: Yes - Psycho-Social/Smoking History Smoking History: Never smoked Have you smoked in the past 12 months: No - Substance Abuse Hx (Audit-C & DAST Scrn) How often the patient has a drink containing alcohol: Never Score: In Men: 4 or > Positive; In Women: 3 or > Positive: 0 Screen Result (Pos requires Nsg. Audit-10AR): Negative In the last yr the pt used illegal drug/Rx for NonMed reason: No Score: Yes response is considered Positive: 0 Screen Result (Positive result requires Nsg. DAST-10): Negative *Physical Exam - Vital Signs Last Vital Signs Temp Pulse Resp BP Pulse Ox 97.8 F 71 18 131/86 100 01/19/20 17:14 01/19/20 17:14 01/19/20 17:14 01/19/20 17:14 01/19/20 17:14 ED Treatment Course - LABORATORY CBC & Chemistry Diagram: 01/19/20 18:30 Medical Decision Making - Medical Decision Making 01/19/20 18:21 59-year-old Bhutanese-speaking female history of hypertension and diabetes presents complaining of intermittent epistaxis x 3 days. Patient denies trauma, shortness of breath, chest pain, dizziness, palpitations, abdominal pain or any other complaints. Patient scheduled a follow-up appointment for January 26, 2020 CBC Advised patient not to blow or rub nose No epistaxis at this time Will observe and reassess 01/19/20 20:24 H/H: 15.6/45.6 no epistaxis while in ED patient agrees with d/c plan will keep appt with pmd scheduled for 01/26/20 Discharge - Discharge Information Problems reviewed: Yes Clinical Impression/Diagnosis: Epistaxis Condition: Stable Disposition: HOME - Admission No - Follow up/Referral - Patient Discharge Instructions Additional Instructions: avoid picking or rubbing your nose avoid blowing your nose use humidifier to keep moisture in your room keep the appointment scheduled with your doctor for 01/26/20 return to ED if dizziness, chest pain, shortness of breath or any other symptoms - Post Discharge Activity
[2020-01-19 18:47] LABS: BASO % 0.3 % (0-2.0); EOS % 0.1 % (0-4.5); HEMATOCRIT 45.6 % (32.4-45.2); HEMOGLOBIN 15.6 GM/dL (10.7-15.3); LYMPH % 26.6 % (8-40); MCH 29.8 pg (25.7-33.7); MCHC 34.2 g/dl (32.0-36.0); MEAN CELL VOLUME 87.1 fl (80-96); MEAN PLT VOLUME 7.7 fl (7.5-11.1); PLATELET COUNT 254 K/MM3 (134-434); RBC 5.23 M/mm3 (3.60-5.2); RDW 13.7 % (11.6-15.6); WHITE BLOOD COUNT 11.2 K/mm3 (4.0-10.0)
== END 2020-01-19 20:35 | disposition home or self-care (01) ==
LOC: JER 17:09
DX: R04.0 Epistaxis (principal)
CPT/HCPCS: 36415; 85025; 99283-25

== ENCOUNTER 2020-01-22 22:28 | Emergency (ER) | payer OTHER ==
--- NOTE | 2020-01-22 22:32 | PDOC ---
History of Present Illness - General Chief Complaint: Pain, Acute Stated Complaint: NOSE BLEEDS Time Seen by Provider: 01/22/20 22:31 History Source: Patient, Family Exam Limitations: No Limitations - History of Present Illness Initial Comments: 01/22/20 22:31 HPI 59 YOF with h/o HTN, hypothyroidism, DM2 presenting with intermittent epistaxis for "a while" but has been bleeding more the last 5 days. Last episode about 30 minutes ago, where she describes nosebleeding from both nares, which lasted 15 minutes and self resolved. denies digital manipulation. denies congestion or nose blowing. no cp or sob. +mild headache and dizziness associated Allergies: None Past Medical History/PSH: as above Social history: Lives with family. No tobacco, ETOH or drug use. Meds: as documented in EMR Family history: noncontributory PMD: in [place] Review of systems Constitutional: no fevers or chills. No weakness HEENT: +headache or dizziness. No congestion. No visual/hearing disturbances. +epistaxis CVS: no cp or syncope. Resp: no sob. No cough. Gastrointestinal: no abdominal pain MUSCULOSKELETAL: No joint pain and swelling. No neck or back pain. SKIN: no redness or skin changes, no discharge, no rash. No wounds. Hematologic: no easy bruising/bleeding. NEUROLOGIC: +headache, dizziness, No LOC or altered mental status. No weakness, numbness or tingling. Psych: no anxiety or depression Allergic/Immunologic: no allergies All other systems reviewed and negative, or as documented in HPI. Physical exam General: Well appearing, awake and alert, NAD. HEENT: NCAT, PERRL, EOMI, clear conjunctiva, anicteric, moist mucus membranes, clear oropharynx, no oral lesions.. no active epistaxis. +small punctate area of erythema/bleeding site from left anterior septum. airway patent, normal phonation Neck: neck supple, FROM Resp: CTAB, normal and even respirations, no respiratory distress CVS: RRR, no murmurs, 2+ peripheral pulses throughout, no peripheral edema Abdomen: soft, NTND, no rebound or guarding. Back: nontender, normal inspection and ROM MSK: no edema, HENRIQUEZ x4, ROM intact. No clubbing or cyanosis. normal bulk and tone. Extremities: no calf tenderness Neuro: alert, oriented appropriately; no focal neurologic deficits Psych: Calm and cooperative Skin: warm and well perfused, cap refill <2 sec, normal color, no rash or skin discoloration. 01/22/20 22:38 01/22/20 22:40 Past History - Medical History Allergies/Adverse Reactions: Allergies Allergy/AdvReac Type Severity Reaction Status Date / Time No Known Allergies Allergy Verified 01/22/20 22:29 Home Medications: Ambulatory Orders Levothyroxine [Synthroid -] 175 mcg PO DAILY 09/09/16 Insulin NPH Hum/Reg Insulin Hm [Novolin 70-30 Flexpen] 20 unit SQ ASDIR 02/19/19 Lisinopril 10 mg PO DAILY 01/22/20 COPD: No Diabetes: Yes Thyroid Disease: Yes - Surgical History Abdominal Surgery: (TUBAL) Cholecystectomy: Yes - Psycho-Social/Smoking History Smoking History: Never smoked Have you smoked in the past 12 months: No Medical Decision Making - Medical Decision Making 01/22/20 22:41 Vital Signs Temp Pulse Resp BP Pulse Ox 98 F 70 16 155/89 96 01/22/20 22:32 01/22/20 22:32 01/22/20 22:32 01/22/20 22:32 01/22/20 22:32 Vital signs reviewed within normal limits, patient does have history of hypertension and is mildly hypertensive which could be contributing to her nosebleeds. Also weather changes dry air can also be contributing Silver nitrate cautery was performed to the left anterior septum where there was a site of likely prior bleed. Patient tolerated without difficulty. Airways intact, breathing comfortably no active bleeding. prevention done with the silver nitrate cautery of likely trigger We will give her epistaxis control no indication for packing at this time and ENT follow-up. Return precautions discussed. Prevention methods also discussed 01/22/20 22:42 Discharge - Discharge Information Problems reviewed: Yes Clinical Impression/Diagnosis: Epistaxis Condition: Stable Disposition: HOME - Admission No - Follow up/Referral Referrals: [facility] [place] Group] [facility] [Provider Group] Huseyin Willard MD [Staff Physician] - - Patient Discharge Instructions Patient Printed Discharge Instructions: DI for Nosebleed, Nosebleeds (Alternative Therapy) Additional Instructions: -avoid digital manipulation and hard nose blowing. - your bleeding here is controlled here in the ED with silver nitrate - be compliant with your blood pressure medications, and monitor your pressure, which can cause nosebleeds as well - use humidifier, as dry air can cause nosebleeds. - compress your nose at the nasal bridge. If compression does not work >20 minut es, go to the ED for evaluation ---- -Evite la manipulacin digital y el sonarse la nariz con fuerza. - nathan sangrado aqu se controla aqu en el servicio de urgencias con nitrato de albino - Cumpla con daisy medicamentos para la presin arterial y controle nathan presin, que tambin puede causar hemorragias nasales. - utilice un humidificador, ya que el aire seco puede provocar hemorragias nasales. - comprima la nariz en el oliver nasal. Si la compresin no funciona> 20 minutos, acuda al servicio de urgencias para nathan evaluacin. - Post Discharge Activity
[2020-01-22] MEDS ORDERED: SILVER NITRATE 75% APPLIC STCK 1 PKT EACH ONE (22:37)
[2020-01-22 22:38] VITALS: BP 155/89; PULSE 70; TEMP 98; BMI 33.2
--- OUTSIDE RECORDS SUMMARY | 2020-01-22 22:42 | XMS ---
:1960 Author [facility] Care Team Providers Name Role Phone ROZ SEGOVIA Unavailable Unavailable STEVEN BELLA Unavailable Unavailable BRITTANIE MORRO Unavailable Unavailable CAROSELLA, AMIRA Unavailable Unavailable LANOIX, JAQUAN Unavailable Unavailable DEBRA, AUGUSTO Unavailable Unavailable FEKETE, RAY Unavailable Unavailable FAINA-LESNICK, WILLIS Unavailable Unavailable RICK, DELORES Unavailable Unavailable RUTLEDGE, MARK Unavailable Unavailable SCOOTER BOLANOS Unavailable Unavailable MARZENA REYES Unavailable Unavailable TITO, SANKARA Unavailable Unavailable REYES IBRAHIM Unavailable Unavailable JC SIMMONS Unavailable Unavailable Aszalos, Belia Julianna Unavailable Unavailable Aszalos, Julianna Unavailable Unavailable Aszalos, Julianna Unavailable Unavailable Aszalos, Julianna Unavailable Unavailable Aszalos, Julianna Unavailable Unavailable Aszalos, Julianna Unavailable Unavailable Aszalos, Julianna Unavailable Unavailable Aszalos, Julianna Unavailable Unavailable Aszalos, Julianna Unavailable Unavailable Souza Unavailable [phone] Souaz Unavailable + EMERGENCY SERVICE, X Unavailable Unavailable Sumanth, Deysi Unavailable Unavailable Sumanth, Deysi Unavailable Unavailable Sumanth, Deysi Unavailable Unavailable Sumanth, Deysi Unavailable Unavailable Sumanth, Deysi Unavailable Unavailable Sumanth, Deysi Unavailable Unavailable ZUNASSIGNED Unavailable Unavailable KAMILAH FRIEDMAN Unavailable Unavailable HÉCTOR NELSON Unavailable Unavailable [place] Unavailable [phone] [place] Unavailable [phone] ZUNASSIGNED@, Unavailable Unavailable Re-disclosure Warning The records that you are about to access may contain information from federally- assisted alcohol or drug abuse programs. If such information is present, then the following federally mandated warning applies: This information has been disclosed to you from records protected by federal confidentiality rules (42 CFR part 2). The federal rules prohibit you from making any further disclosure of this information unless further disclosure is expressly permitted by the written consent of the person to whom it pertains or as otherwise permitted by 42 CFR part 2. A general authorization for the release of medical or other information is NOT sufficient for this purpose. The Federal rules restrict any use of the information to criminally investigate or prosecute any alcohol or drug abuse patient.The records that you are about to access may contain highly sensitive health information, the redisclosure of which is protected by Article 27-F of the [facility] Public Health law. If you continue you may haveaccess to information: Regarding HIV / AIDS; Provided by facilities licensed or operated by the [facility] Office of Mental Health; or Provided by the [facility] Office for People With Developmental Disabilities. If such information is present, then the following [facility] mandated warning applies: This information has been disclosed to you from confidential records which are protected by state law. State law prohibits you from making any further disclosure of this information without the specific written consent of the person to whom it pertains, or as otherwise permitted by law. Any unauthorized further disclosure in violation of state law may result in a fine or fdc sentence or both. A general authorization for the release of medical or other information is NOT sufficient authorization for further disclosure. Allergies and Adverse Reactions Type Description Substance Reaction Status Data Source(s ) Drug allergy No Known Allergies No Known [place] Allergies [facility] on Food allergy No Known Food No Known Food [place] yin Allergies Allergies [facility] on Drug allergy No Known Drug No Known Drug [place] y[place] Allergies Allergies Rust on Propensity to Propensity to Propensity to NEXTG EN ([facility] adverse reactions adverse reactions adverse reactions [facility] Medical (disorder) (disorder) (disorder) Center) Encounters Encounter Providers Location Date Indications Data Source(s ) Outpatient Attender: 01/25/2020 [facility] ZUNASSIGNEDAdmitter 04:14:00 PM [facility] : EDT ZUNASSIGNEDReferrer : [id number] [email or web address]@, Outpatient Admitter: [id number] 01/25/2020 [facility] contreras ZUNASSIGNED@,Referr 12:00:00 AM [facility] er: [id number] EDT ZUNASSIGNED@, Outpatient Attender: AAMIR, 10/27/2019 TELE [facility] REEAdmitter: 08:32:00 AM Health Ca re MARK RUTLEDGE EDT Corporatio n TELE Emergency Attender: ZENIA, 07/23/2019 03:54:00 [facility] RICHARDAttender: EMERGENCY PM EDT Health Care SERVICE, XAdmitter: JAQUAN King Outpatient Attender: JENA, 06/06/2019 06:00:00 [facility] STEVEN BallardAttender: AM EST [facility] MARZENA BowieAdmitter: Co rporation MARZENA REYES [facility] Outpatient Attender: TITO, 03/30/2019 10:19:00 [facility] TITO [facility] inSilica Outpatient Attender: JENA, 03/15/2019 06:00:00 [facility] STEVEN BallardAdmitter: AM EST [facility] STEVEN BELLA Co rporation [facility] Outpatient Attender: ALF, 03/10/2019 12:00:00 [facility] CHRISTINEAdmitter: AM [facility] Care AMIRA MILNER orgabriel [facility] Outpatient Attender: TROY, 03/03/2019 06:00:00 [facility] MELISAOPHERAttender: AM EST Heal [facility] STEVEN BELLAAdmitter: JC SIMMONS Outpatient Attender: BRITTANIE, 01/10/2019 03:07:00 [facility] JANNIECAAttender: ERIC, PM EDT Health Care MARZENAAdmitter: [facility] Outpatient Attender: ELDER, 10/27/2018 12:55:00 PM [facility] AMYAdmitter: JOEL FRIEDMAN [facility] KAMILAH Outpatient Attender: DEBRA, 10/14/2018 02:07:00 PM [facility] LEANNEAdmitter: DEBRA EDT [facility] AUGUSTO Outpatient Referrer: ROZ SEGOVIA 09/28/2018 12:00:00 AM [facility] Co rporation Outpatient 09/15/2018 10:20:00 AM [facility] EDT Center Outpatient Attender: OMAR, 09/15/2018 06:00:00 AM [facility] Co rporation Outpatient 09/15/2018 12:00:00 AM [facility] EDT Center Outpatient Attender: RICK, 09/09/2018 08:37:00 AM [facility] BROOKEAttender: ERIC, EDT [facility] JASONAdmitter: DELORES CABRERA [facility] Outpatient Attender: Audra 09/01/2018 06:00:00 [facility]ender: CICI, 08/25/2018 11:03:00 [facility] AM EDT [facility] PAIN Outpatient Attender: PATRICE, 08/23/2018 06:00:00 Z12.11 [facility] REYES RoachAdmitter: AM EDT Health C are REYES IBRAHIMReferrer: REYES IBRAHIM Z12.11 Attender: [facility] 08/12/2018 CATHIE Davenport ([facility] 11:51:00 AM EDT [facility] 08/12/2018 Center) 11:51:00 AM EDT Outpatient 08/11/2018 [facility] 09:44:00 AM EDT Medical C enter Outpatient 08/11/2018 [facility] 12:00:00 AM EDT Medical C enter Outpatient Attender: 07/28/2018 Z12.11 [facility] tyrone CERVANTES, 06:00:00 AM EDT [facility] Care BETHAdmitter: Chad Vargaserrer: WILLIS CERVANTES Z12.11 Attender: [facility] 07/16/2018 JASON Issac ([facility] 09:12:00 AM EDT - [facility] 07/16/2018 Center) 09:12:00 AM EDT Outpatient 07/15/2018 [facility] 11:16:00 AM EDT Medical C enter Outpatient 07/15/2018 [facility] 12:00:00 AM EDT Medical C enter Outpatient Attender: 07/07/2018 Z12.11 [facility] untnatividad CERVANTES, 06:00:00 AM EDT Heal th Care MICHOACANOHAdmitter: Corporation Chad CERVANTESerrer: WILLIS CERVANTES Z12.11 Outpatient Attender: JENA, 06/17/2018 02:24:00 [facility] STEVEN BallardAttender: PM EST Healt h ESTELA Barrondmitter: C orDELORES Martin [facility] Attender: [facility] 05/27/2018 12:57:00 [facility] EST - 05/27/2018 [facility] Medical 12:57:00 PM EST Center) Outpatient Attender: ERIC, 05/25/2018 06:00:00 [facility] MARZENAAdmitter: AM EST Health Car e MARZENA REYES inSilica FV OutpatientOFFICE/OUTPATIENT Attender: [facility] 05/20/2018 [facility] ([facility] 12:44:00 PM [facility] EST Medical 05/20/2018 Center) 12:44:00 PM EST 05/20/2018 [facility] 12:00:00 AM Medical Cente r EST Attender: [facility] 04/24/2018 [facility] ([facility] 09:20:00 AM [facility] EST - Medical 04/24/2018 Center) 09:20:00 AM EST OutpatientOFFICE/OUTPATIENT Podiatry 03/30/2018 [facility] ([facility] 09:34:00 AM [facility] 03/30/2018 [place]) 09:34:00 AM EST Attender: [facility] 02/26/2018 [facility] ([facility] 12:39:00 PM [facility] EDT - Medical 02/26/2018 Center) 12:39:00 PM EDT Attender: Family 01/27/2018 [facility] 08:53:00 AM [facility] EDT - Medical 01/27/2018 [place]) 08:53:00 AM EDT Outpatient Attender: 11/16/2017 [place] FEKETE, 06:00:00 AM [facility] David EDT [facility] RAY Immunizations Vaccine Date Status Description Data Source(s) New in 2011. IIV4 05/20/2018 completed Influenza, Injectable, NEXTGEN ([facility] 12:00:00 AM EST Quadrivalent [facility]) Source: New Immunization Record Tdap 01/27/2018 12:00:00 AM EDT completed Tdap N EXTGEN ([facility]) Source: New Immunization Record Medications Medication Brand Start Product Dose Route Administrative Pharmacy [facility] Indications Reaction Description Data Name Date Form Instructions Instructions Source(s) Zofran Zofran 07/22/ 4 mg UNK active Zofran [place] 4mg/2mL 4mg/2m 2020 4mg/2mL r Count y (Onda L 06:26: (Ondansetron Heal th (Onda 51 PM ) Injection Care EDT 4 mg IVP Corporatio n Medication administered onsite 0.9% 0.9% 07/23/2019 1000 mL UNK active 0.9% NaC [facility] NaCl IV NaCl IV 06:26:34 PM IV 1000 mL; [facility] EDT IV rate: Care Bolus over Corporati on 30 minutes Medication administered onsite Tylenol Tylenol 07/23/2019 975 UNK active Tylen [facility] (Acetaminoph (Acetaminoph 06:07:55 PM mg (Acetaminophen) [facility] EDT Oral 975 [address] [facility] Medication administered onsite Dextromethorphan Robitussin 05/20/2018 active Dextromethorphan NEXTGEN Hydrobromide 3 Nighttime 12:00:00 AM Hydrobromide 3 (Saint MG/ML / Cough DM 12.5 EST MG/ML / [facility] doxylamine mg-30 mg/10 doxylam ine Medical succinate 1.25 mL oral succina te 1.25 [place]) MG/ML Oral liquid MG/ML Oral Solution Solution [Robitussin [Robitussin Nighttime Cough Nighttime Cough DM] Robitussin DM] Nighttime Cough DM 12.5 mg-30 mg/10 mL oral liquid Clotrimazole 10 clotrimazole 03/30/2018 TO active apply by topical NEXTGEN MG/ML Topical 1 % topical 12:00:00 AM PI route 2 times ([facility] Cream cream EST CA every day to the [facility] clotrimazole 1 % L affected and Medical topical cream surrounding areas Center) of skin in the morning and evening Clotrimazole 10 clotrimazole 03/30/2018 TO active apply by topical NEXTGEN MG/ML Topical 1 % topical 12:00:00 AM PI route 2 times ([facility] Solution solution EST CA every day to the [facility] clotrimazole 1 % L affected and Medical topical solution surround ing areas Center) of skin in the morning and evening insulin human, Novolin 70/30 02/26/2018 active insulin human, NEXTGEN isophane 70 U-100 Insulin 12:00:00 AM isophane 70 ([facility] UNT/ML / Regular 100 unit/mL EDT U NT/ML / Regular [facility] Insulin, Human 30 subcutaneous Insulin, Human 30 Medical UNT/ML Injectable suspension U NT/ML Injectable Center) Suspension Suspension [Novolin] Novolin [Novoli n] 70/30 U-100 Insulin 100 unit/mL subcutaneous suspension atorvastatin 20 atorvastatin 02/26/2018 1.0 OR active take 1 tablet by NEXTGEN MG Oral Tablet 20 mg tablet 12:00:00 AM 0 AL oral route every ([facility] atorvastatin 20 EDT {tb day [place] phs mg tablet l} Medical [place]) Unable to Unable to 999 UN complete Unable to [facility] Obtain/Drug Names Obtain/Drug MG K d Obtain/Drug Names [place] Unknown Names Unknown Unknown Health Care Corporati on Insurance Providers Payer name Policy type Policy ID Covered Covered alliance party's Policy P abdirashid / Coverage alliance party ID relationship to [place] Inf ormation type mckeon MEDICAID [id number] SP [id number] O 01 SELF PAY SP INSURANCE Problems, Conditions, and Diagnoses Code Display Name Description Problem Type Effective Data Sour ce(s) Dates [id number] Diabetes mellitus Diabetes mellitus Problem NEXTGEN ([facility]) Z20.828 Contact with and CONTACT W AND Diagnosis 07/23/2019 [facility] tali (suspected) EXPOSURE TO OTH 03:54:00 PM [facility] exposure to other VIRAL COMMUNICABLE EDT Care viral communicable DISEASES Corpor ation diseases B34.9 Viral infection, VIRAL INFECTION, Diagnosis 07/23/2019 [facility] unspecified UNSPECIFIED 03:54:00 PM [facility] EDT Care Corporation J18.1 Lobar pneumonia, LOBAR PNEUMONIA, Diagnosis 07/23/2019 [facility] unspecified UNSPECIFIED 03:54:00 PM [facility] organism ORGANISM EDT Care Corporation R05 Cough COUGH Diagnosis 07/23/2019 [place] 03:54:00 PM 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 06/06/2019 [place] with diffuse DIFFUSE GOITER W/O 06:00:00 AM [facility] Health goiter without THYROTOXIC CRISIS EST Car e thyrotoxic crisis Corpora tion or storm M81.0 Age-related AGE-RELATED Diagnosis 06/06/2019 [place] osteoporosis OSTEOPOROSIS W/O 06:00:00 AM Count y Health without current CURRENT EST Care pathological PATHOLOGICAL Corporatio n fracture FRACTURE E11.9 Type 2 diabetes TYPE 2 DIABETES Diagnosis 06/06/2019 [place] mellitus without MELLITUS WITHOUT 06:00:00 AM C [facility]unt[facility] Health complications COMPLICATIONS EST Care Corporation E78.5 Hyperlipidemia, HYPERLIPIDEMIA, Diagnosis 03/30/2019 [place] unspecified UNSPECIFIED 10:19:00 AM [facility] EST Care Corporation E10.9 Type 1 diabetes TYPE 1 DIABETES Diagnosis 03/30/2019 [place] mellitus without MELLITUS WITHOUT 10:19:00 AM C ounty Health complications COMPLICATIONS EST Care Corporation H04.129 Dry eye syndrome DRY EYE SYNDROME Diagnosis 03/30/2019 [place] unspecified OF UNSPECIFIED 10:19:00 AM Count y Health lacrimal gland LACRIMAL GLAND EST Care Corporation 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 EST [employer] Y99.8 Other external OTHER EXTERNAL Diagnosis 03/10/2019 [place] cause status CAUSE STATUS 12:00:00 AM Critical access hospital [employer] Y92.89 Other specified OT PLACES THE Diagnosis 03/10/2019 [facility] places as the PLACE OF 12:00:[address] [facility] of OCCURRENCE OF THE EST Care occurrence of the EXTERNAL CAUSE Cor poration external cause Y83.8 Other surgical OT SURGICAL Diagnosis 03/10/2019 [facility] procedures as the PROCEDURES CAUSE 12:00:00 AM [facility] cause of abnormal ABN REACT/COMPL, EST C are reaction of the W/O MISADVNT Corpora tion patient, or of later complication, without mention of misadventure at the time of the procedure E89.0 Postprocedural POSTPROCEDURAL Diagnosis 03/10/2019 [facility] yin hypothyroidism HYPOTHYROIDISM 12:00:00 AM [facility] [employer] Z23 Encounter for ENCOUNTER FOR Diagnosis 03/03/2019 [facility] immunization IMMUNIZATION 06:00:00 AM Critical access hospital [employer] R89.0 Abnormal level of ABNORMAL LEVEL OF Diagnosis 03/03/2019 [place] enzymes in ENZYMES IN 06:00:00 AM [facility] specimens from SPECIMENS FROM OT EST Ca re other organs, ORG/TISS Corporation systems and tissues I10 Essential ESSENTIAL Diagnosis 03/03/2019 [place] (primary) (PRIMARY) 06:00:00 AM [facility] hypertension HYPERTENSION [employer] Z91.14 Patient's other PATIENT'S OTHER Diagnosis 10/27/2018 [facility] noncompliance with NONCOMPLIANCE WITH 12:55:00 PM [facility] medication regimen MEDICATION REGIMEN [employer] M79.605 Pain in left leg PAIN IN LEFT LEG Diagnosis 10/27/2018 [facility] 12:55:00 PM [facility] [employer] M79.604 Pain in right leg PAIN IN RIGHT LEG Diagnosis 10/27/2018 [place] 12:55:00 PM [facility] [employer] E03.9 Hypothyroidism, HYPOTHYROIDISM, Diagnosis 09/28/2018 [facility] unspecified UNSPECIFIED 12:00:00 AM [facility] [employer] L29.2 Pruritus vulvae PRURITUS VULVAE Diagnosis 09/28/2018 [facility] 12:00:00 AM [facility] [employer] Z01.411 Encounter for ENCNTR FOR PREPRESS SPECIALIST Diagnosis 09/28/2018 [facility] gynecological EXAM (GENERAL) 12:00:00 AM [facility] examination (ROUTINE) W EDT Care (general) ABNORMAL FINDINGS Corpora tion (routine) with abnormal findings E11.65 Type 2 diabetes TYPE 2 DIABETES Diagnosis 09/15/2018 [place] mellitus with MELLITUS WITH 06:00:00 AM [facility] hyperglycemia HYPERGLYCEMIA EDT Care inSilica M19.90 Unspecified UNSPECIFIED Diagnosis 09/09/2018 [place] osteoarthritis, OSTEOARTHRITIS, 08:37:00 AM [facility] unspecified site UNSPECIFIED SITE EDT Ca re Corporation Z12.31 Encounter for ENCNTR SCREEN Diagnosis 09/09/2018 [facility] screening MAMMOGRAM FOR 08:37:00 AM [facility] mammogram for MALIGNANT NEOPLASM EDT Car e malignant neoplasm OF BREAST Corpor ation of breast L02.214 Cutaneous abscess CUTANEOUS ABSCESS Diagnosis 08/25/2018 [place] of groin OF GROIN 11:03:00 AM [facility] EDT Care in[employer] R10.31 Right lower RIGHT LOWER Diagnosis 08/25/2018 [place] quadrant pain QUADRANT PAIN 11:03:00 AM [facility] EDT Care [employer] Z86.19 Personal history PERSONAL HISTORY Diagnosis 06/17/2018 [place] of other OF OTHER 02:24:00 PM [facility] infectious and INFECTIOUS AND EST Care parasitic diseases PARASITIC DISEASES inSil[employer] M85.80 Other specified OTH DISRD OF BONE Diagnosis 06/17/2018 [place] disorders of bone DENSITY AND 02:24:00 PM Count y Health density and STRUCTURE, EST Care structure, UNSPECIFIED SITE Corporat ion unspecified site M25.562 Pain in left knee PAIN IN LEFT KNEE Diagnosis 06/17/2018 [place] 02:24:00 PM [facility] EST Care in[employer] M25.561 Pain in right knee PAIN IN RIGHT KNEE Diagnosis 9 [place] 02:24:00 PM [facility] [employer] Surgeries/Procedures Procedure Description Date Indications Data Source(s) Influenza, Injectable, 3 05/20/2018 NEX TGEN ([facility] Y[facility] Older 12:00:00 AM EST Michelle Cornejo jus - 05/20/2018 Center) 12:00:00 AM EST Immunization 05/20/2018 NEXTGEN ([facility] Administration 12:00:00 AM EST Michelle Me dical - 05/20/2018 Center) 12:00:00 AM EST OFFICE/OUTPATIENT VISIT, 05/20/2018 NEX TGEN ([facility] EST 12:00:00 AM EST [facility] - 05/20/2018 Center) 12:00:00 AM EST OFFICE/OUTPATIENT VISIT, 03/30/2018 NEX TGEN ([facility] EST 12:00:00 AM EST [facility] - 03/30/2018 Center) 12:00:00 AM EST DEBRIDE NAIL, 6 OR MORE 03/30/2018 NEXT GEN ([facility] 12:00:[address] [facility] 03/30/2018 [place]) 12:00:00 AM EST Results ID Date Data Source Urinalysis.[id number] 05/21/2018 09:52:00 AM EST [facility] 0 Name Value Range Interpretation Description Data Sup porting Code Source(s) Document(s ) Glucose NEGATIVE <content [facility] [Mass/volume] styleCode="Kortney Michelle in Urine by d">Urine Medical Test strip Glucose Center </content>100 MG/DL<content styleCode="Tabby lics"> (NEGATIVE MG/DL)</conten t> UNK CLEAR <content Saint styleCode="Kortney Michelle d">Urine Medical Clarity Center </content>DIANA R <content styleCode="Tabby lics"> (CLEAR )</content> UNK NEGATIVE <content Saint styleCode="Kortney Michelle d">Urine Medical Bilirubin Center </content>NEGA TIVE <content styleCode="Tabby lics"> (NEGATIVE )</content> Color of Urine YELLOW <content Saint styleCode="Kortney Michelle d">Color, Medical Urine Center </content>YELL OW <content styleCode="Tabby lics"> (YELLOW )</content> Specific 1.015-1.02 Below low normal <content [facility] gravity of 5 styleCode="Kortney Michelle Urine by Test d">Urine Medical strip Specific Center [place] </content>1.01 0 NM L<content styleCode="Tabby lics"> (1.015-1.025 NM)</content> Ketones NEGATIVE <content [facility] [Mass/volume] styleCode="Kortney Michelle in Urine by d">Urine Medical Test strip Ketone Center </content>NEGA TIVE MG/DL<content styleCode="Tabby lics"> (NEGATIVE MG/DL)</conten t> Hemoglobin NEGATIVE <content Saint [Presence] in styleCode="Kortney Yes Urine by Test d">Urine Blood Medical strip </content>NEGA Center TIVE <content styleCode="Tabby lics"> (NEGATIVE )</content> pH of Urine by 4.5-8.0 <content Saint Test strip styleCode="Kortney Michelle d">Urine pH Medical </content>6.5 Center NM<content styleCode="Tabby lics"> (4.5-8.0 NM)</content> Protein NEGATIVE <content [facility] [Mass/volume] styleCode="Kortney Michelle in Urine by d">Urine Medical Test strip Protein Center </content>NEGA TIVE MG/DL<content styleCode="Tabby lics"> (NEGATIVE MG/DL)</conten t> Urobilinogen 0.2-1.0 <content [facility] [Units/volume] styleCode="Kortney Michelle in Urine by d">Urine Medical Test strip Urobilinogen Center </content>0.2 MG/DL<content styleCode="Tabby lics"> (0.2-1.0 MG/DL)</conten t> Nitrite NEGATIVE <content Saint [Presence] in styleCode="Kortney Yes Urine by Test d">Urine Medical strip Nitrite Center </content>NEGA TIVE <content styleCode="Tabby lics"> (NEGATIVE )</content> UNK 0-3 <content Saint styleCode="Kortney Michelle d">Urine White Medical Blood Cell Center </content>3-5 HPF<content styleCode="Tabby lics"> (0-3 HPF)</content> UNK 0-3 <content Saint styleCode="Kortney Michelle d">Urine Red Medical Blood Cell Center </content>0-3 HPF<content styleCode="Tabby lics"> (0-3 HPF)</content> Leukocyte NEGATIVE <content Saint esterase styleCode="Kortney Michelle [Presence] in d">Urine Medical Urine by Test Leukocyte Center strip </content>TRAC E <content styleCode="Tabby lics"> (NEGATIVE )</content> UNK <content styleCode="Kortney Martinez d">Epithelial Medical Cell Center </content>0-2 LPF (Reference Range: not available)<br/ > UNK NEGATIVE <content styleCode="Kortney Martinez d">Urine Medical Bacteria Center </content>FEW HPF<content styleCode="Tabby lics"> (NEGATIVE HPF)</content> ID Date Data Source Liver 05/21/2018 09:52:00 AM EST [facility] Profile.[id number] Name Value Range Interpretation Description Data Sup porting Code Source(s) Document(s ) Aspartate 14-36 <content [facility] aminotransferase styleCode="Bold"> Rodrigue hs [Enzymatic Aspartate Medical activity/volume] Aminotransferase Center in Serum or Plasma (AST) </content>29 IU/L<content styleCode="Italic s"> (14-36 IU/L)</content> Bilirubin.total 0.2-1.3 <content [facility] [Mass/volume] in styleCode="Bold"> Rodrigue hs Serum or Plasma Bilirubin Total Medical </content>0.7 Center MG/DL<content styleCode="Italic s"> (0.2-1.3 MG/DL)</content> Albumin 3.5-5.0 <content [facility] [Mass/volume] in styleCode="Bold"> Rodrigue hs Serum or Plasma Albumin Medical </content>4.3 Center G/DL<content styleCode="Italic s"> (3.5-5.0 G/DL)</content> Alkaline 38-126 <content phosphatase styleCode="Bold"> Michelle [Enzymatic Alkaline Medical activity/volume] Phosphatase (ALP) Cente r in Serum or Plasma </content>115 IU/L<content styleCode="Italic s"> (38-126 IU/L)</content> Alanine 7-30 <content [facility] aminotransferase styleCode="Bold"> Rodrigue hs [Enzymatic Alanine Medical activity/volume] Aminotransferase Center in Serum or Plasma (ALT) </content>25 IU/L<content styleCode="Italic s"> (7-30 IU/L)</content> ID Date Data Source LIPID.[id number] 05/21/2018 09:52:00 AM EST [facility] Name Value Range Interpretation Description Data Sup porting Code Source(s) Document(s ) Triglyceride < 150 <content Saint [Mass/volume] in styleCode="Kortney Michelle Serum or Plasma d">Triglycerid Medical es Center </content>122 MG/DL<content styleCode="Tabby lics"> (< 150 MG/DL)</conten t> UNK > 60 Below low normal <content Saint styleCode="Kortney Michelle d">HDL- Medical Cholesterol Center </content>42 MG/DL L<content styleCode="Tabby lics"> (> 60 MG/DL)</conten t> UNK < 100 Above high normal <content Saint styleCode="Kortney Michelle d">LDL-Cholest Medical machelle Center </content>110 MG/DL H<content styleCode="Tabby lics"> (< 100 MG/DL)</conten t> Cholesterol -<200 <content Saint [Mass/volume] in styleCode="Kortney Michelle Serum or Plasma d">Cholesterol Medical </content>176 Center MG/DL<content styleCode="Tabby lics"> (-<200 MG/DL)</conten t> ID Date Data Source HematologyRou.[id number] 05/21/2018 09:52:00 AM EST [facility] 0500 Name Value Range Interpretation Description Data Sup porting Code Source(s) Document(s ) Hematocrit 36.0-46. <content Saint [Volume 0 styleCode="Bold Michelle Fraction] of ">Hematocrit Medical Blood by </content>41.8 Center Automated count %<content styleCode="Ital ics"> (36.0-46.0 %)</content> Leukocytes 4.4-11.0 <content Saint [#/volume] in styleCode="Bold Michelle Blood by ">White Blood Medical Automated count Cell Count Center </content>7.42 KCUMM<content styleCode="Ital ics"> (4.4-11.0 KCUMM)</content > Erythrocyte mean 80.0-100 <content [facility] corpuscular .0 styleCode="Bold Michelle volume [Entitic ">Mean Medical volume] by Corpuscular Center Automated count Volume </content>84.4 FL<content styleCode="Ital ics"> (80.0-100.0 FL)</content> Erythrocytes 4.0-5.1 <content Saint [#/volume] in styleCode="Bold Michelle Blood by ">Red Blood Medical Automated count Cell Count Center </content>4.95 MCUMM<content styleCode="Ital ics"> (4.0-5.1 MCUMM)</content > Hemoglobin 12.3-16. <content [facility] [Mass/volume] in 0 styleCode="Bold Michelle Blood ">Hemoglobin Medical </content>14.1 Center G/DL<content styleCode="Ital ics"> (12.3-16.0 G/DL)</content> Platelet mean 8.0-11.0 <content Saint volume [Entitic styleCode="Bold Michelle volume] in Blood ">Mean Platelet Medical by Automated Volume Center count </content>10.0 FL<content styleCode="Ital ics"> (8.0-11.0 FL)</content> Erythrocyte mean 26.0-34. <content [facility] corpuscular 0 styleCode="Bold Michelle hemoglobin ">Mean Medical [Entitic mass] Corposcular Center by Automated Hemoglobin count </content>28.5 PG<content styleCode="Ital ics"> (26.0-34.0 PG)</content> Erythrocyte mean 32.0-37. <content [facility] corpuscular 0 styleCode="Bold Michelle hemoglobin ">Mean Corpus. Medical concentration Hgb Center [Mass/volume] by Concentration Automated count (MCHC) </content>33.7 G/DL<content styleCode="Ital ics"> (32.0-37.0 G/DL)</content> Platelets 130-400 <content Saint [#/volume] in styleCode="Bold Michelle Blood by ">Platelet Medical Automated count Count Center </content>224 KCUMM<content styleCode="Ital ics"> (130-400 KCUMM)</content > Erythrocyte 11.5-14. <content [facility] distribution 5 styleCode="Bold Michelle width [Ratio] by ">Red Cell Medical Automated count Distribution Center Width </content>13.0 %<content styleCode="Ital ics"> (11.5-14.5 %)</content> UNK 0.0 <content Saint styleCode="Bold Michelle ">Nucleated Red Medical Blood Cell Center Count </content>0.00 KCUMM<content styleCode="Ital ics"> (0.0 KCUMM)</content > UNK 0 <content Saint styleCode="Bold Michelle ">Nucleated Red Medical Blood Cell Center </content>0.0 /100<content styleCode="Ital ics"> (0 /100)</content> ID Date Data Source GFR(Creatinine).[id number] 05/21/2018 09:52:00 AM [facility] 0-0500 Name Value Range Interpretation Code Description Data Haley rce(s) Supporting Document(s ) UNK > 60 <content [facility] styleCode="Bold"> Medical Cent er EGFR </content>136 GFR<content styleCode="Italic s"> (> 60 GFR)</content> ID Date Data Source CHMROUTINECCDA.[id number] 05/21/2018 09:52:00 AM [facility] -0500 Name Value Range Interpretation Description Data Sup porting Code Source(s) Document(s ) UNK Not <content Saint Established styleCode="Kortney Michelle d">[facility] </content>0.6 mg/dL<content styleCode="Tabby lics"> (Not Established mg/dL)</conten t> UNK >= 1.0 <content Saint styleCode="Kortney Michelle d">AG Ratio Medical </content>1.3 Center NM<content styleCode="Tabby lics"> (>= 1.0 NM)</content> UNK 4.2-5.8 Above high normal <content Saint styleCode="Kortney Michelle d">Hemoglobin Medical A1C Center </content>9.8 % H<content styleCode="Tabby lics"> (4.2-5.8 %)</content> UNK 2.3-3.5 <content Saint styleCode="Kortney Michelle d">Globulin Medical </content>3.2 Center G/DL<content styleCode="Tabby lics"> (2.3-3.5 G/DL)</content > Protein 6.3-8.2 <content Saint [Mass/volu styleCode="Kortney Michelle me] in d">Total Medical Serum or Protein Center Plasma </content>7.5 G/DL<content styleCode="Tabby lics"> (6.3-8.2 G/DL)</content > ID Date Data Source [facility].[id number] 05/21/2018 09:52:00 AM EST [facility] Name Value Range Interpretation Description Data Sup porting Code Source(s) Document(s ) Sodium 137-145 <content Saint [Moles/volume] in styleCode="Bold"> [place] [facility] Serum or Plasma Sodium Medical </content>139 Center MEQ/L<content styleCode="Italic s"> (137-145 MEQ/L)</content> Carbon dioxide, 22-30 Above high <content Saint total normal styleCode="Bold"> Michelle [Moles/volume] in Carbon Dioxide Medical Serum or Plasma </content>31 Center MEQ/L H<content styleCode="Italic s"> (22-30 MEQ/L)</content> Chloride 98-107 <content [facility] [Moles/volume] in styleCode="Bold"> [place] [facility] Serum or Plasma Chloride Medical </content>101 Center MEQ/L<content styleCode="Italic s"> (98-107 MEQ/L)</content> Potassium 3.5-5.3 <content [facility] [Moles/volume] in styleCode="Bold"> [place] [facility] Serum or Plasma Potassium Medical </content>4.5 Center MEQ/L<content styleCode="Italic s"> (3.5-5.3 MEQ/L)</content> Glucose 74-106 Above high <content [facility] [Mass/volume] in normal styleCode="Bold"> Rodrigue hs Serum or Plasma Glucose Medical </content>195 Center MG/DL H<content styleCode="Italic s"> (74-106 MG/DL)</content> Creatinine 0.5-1.3 <content [facility] [Mass/volume] in styleCode="Bold"> Rodrigue hs Serum or Plasma Creatinine Medical </content>0.5 Center MG/DL<content styleCode="Italic s"> (0.5-1.3 MG/DL)</content> Calcium 8.4-10. <content [facility] [Mass/volume] in 2 styleCode="Bold"> Rodrigue hs Serum or Plasma Calcium Medical </content>9.0 Center MG/DL<content styleCode="Italic s"> (8.4-10.2 MG/DL)</content> UNK > 60 <content Saint styleCode="Bold"> Michelle EGFR Medical </content>136 Center GFR<content styleCode="Italic s"> (> 60 GFR)</content> UNK 7-17 <content Saint styleCode="Bold"> Michelle BUN </content>12 Medical MG/DL<content Center styleCode="Italic s"> (7-17 MG/DL)</content> Aspartate 14-36 <content [facility] aminotransferase styleCode="Bold"> Rodrigue hs [Enzymatic Aspartate Medical activity/volume] Aminotransferase Center in Serum or Plasma (AST) </content>29 IU/L<content styleCode="Italic s"> (14-36 IU/L)</content> Alkaline 38-126 <content [facility] phosphatase styleCode="Bold"> Michelle [Enzymatic Alkaline Medical activity/volume] Phosphatase (ALP) Cente r in Serum or Plasma </content>115 IU/L<content styleCode="Italic s"> (38-126 IU/L)</content> Albumin 3.5-5.0 <content [facility] [Mass/volume] in styleCode="Bold"> Rodrigue hs Serum or Plasma Albumin Medical </content>4.3 Center G/DL<content styleCode="Italic s"> (3.5-5.0 G/DL)</content> Bilirubin.total 0.2-1.3 <content [facility] [Mass/volume] in styleCode="Bold"> Rodrigue hs Serum or Plasma Bilirubin Total Medical </content>0.7 Center MG/DL<content styleCode="Italic s"> (0.2-1.3 MG/DL)</content> Alanine 7-30 <content [facility] aminotransferase styleCode="Bold"> Rodrigue hs [Enzymatic Alanine Medical activity/volume] Aminotransferase Center in Serum or Plasma (ALT) </content>25 IU/L<content styleCode="Italic s"> (7-30 IU/L)</content> ID Date Data Source Urinalysis 05/21/2018 09:52:00 AM EST [facility] Name Value Range Interpretation Description Data Sup porting Code Source(s) Document(s ) Color of Urine YELLOW <content Saint styleCode="Kortney Michelle d">Color, Medical Urine Center </content>YELL OW <content styleCode="Tabby lics"> (YELLOW )</content> UNK CLEAR <content Saint styleCode="[facility] d">Urine Medical Clarity Center </content>DIANA R <content styleCode="Tabby lics"> (CLEAR )</content> UNK NEGATIVE <content Saint styleCode="Kortney Michelle d">Urine Medical Bilirubin Center </content>NEGA TIVE <content styleCode="Tabby lics"> (NEGATIVE )</content> Ketones NEGATIVE <content Saint [Mass/volume] styleCode="Kortney Martinez in Urine by d">Urine Medical Test strip Ketone Center </content>NEGA TIVE MG/DL<content styleCode="Tabby lics"> (NEGATIVE MG/DL)</conten t> Specific 1.015-1.02 Below low normal <content Saint gravity of 5 styleCode="Kortney Martinez Urine by Test d">Urine Medical strip Specific Center [place] </content>1.01 0 NM L<content styleCode="Tabby lics"> (1.015-1.025 NM)</content> Glucose NEGATIVE <content Saint [Mass/volume] styleCode="Kortney Michelle in Urine by d">Urine Medical Test strip Glucose Center </content>100 MG/DL<content styleCode="Tabby lics"> (NEGATIVE MG/DL)</conten t> Urobilinogen 0.2-1.0 <content Saint [Units/volume] styleCode="Kortney Michelle in Urine by d">Urine Medical Test strip Urobilinogen Center </content>0.2 MG/DL<content styleCode="Tabby lics"> (0.2-1.0 MG/DL)</conten t> Protein NEGATIVE <content Saint [Mass/volume] styleCode="Kortney Michelle in Urine by d">Urine Medical Test strip Protein Center </content>NEGA TIVE MG/DL<content styleCode="Tabby lics"> (NEGATIVE MG/DL)</conten t> pH of Urine by 4.5-8.0 <content Saint Test strip styleCode="Kortney Michelle d">Urine pH Medical </content>6.5 Center NM<content styleCode="Tabby lics"> (4.5-8.0 NM)</content> Hemoglobin NEGATIVE <content Saint [Presence] in styleCode="Kortney Yes Urine by Test d">Urine Blood Medical strip </content>NEGA Center TIVE <content styleCode="Tabby lics"> (NEGATIVE )</content> Nitrite NEGATIVE <content Saint [Presence] in styleCode="Kortney Yes Urine by Test d">Urine Medical strip Nitrite Center </content>NEGA TIVE <content styleCode="Tabby lics"> (NEGATIVE )</content> Leukocyte NEGATIVE <content Saint esterase styleCode="Kortney Michelle [Presence] in d">Urine Medical Urine by Test Leukocyte Center strip </content>TRAC E <content styleCode="Tabby lics"> (NEGATIVE )</content> UNK 0-3 <content Saint styleCode="Kortney Michelle d">Urine Red Medical Blood Cell Center </content>0-3 HPF<content styleCode="Tabby lics"> (0-3 HPF)</content> UNK 0-3 <content Saint styleCode="Kortney Michelle d">Urine White Medical Blood Cell Center </content>3-5 HPF<content styleCode="Tabby lics"> (0-3 HPF)</content> UNK NEGATIVE <content Saint styleCode="Kortney Michelle d">Urine Medical Bacteria Center </content>FEW HPF<content styleCode="Tabby lics"> (NEGATIVE HPF)</content> UNK <content Saint styleCode="Kortney Michelle d">Epithelial Medical Cell Center </content>0-2 LPF (Reference Range: not available)<br/ > ID Date Data Source Liver Profile 05/21/2018 09:52:00 AM EST [facility] Name Value Range Interpretation Description Data Sup porting Code Source(s) Document(s ) Aspartate 14-36 <content [facility] aminotransferase styleCode="Bold"> Rodrigue hs [Enzymatic Aspartate Medical activity/volume] Aminotransferase Center in Serum or Plasma (AST) </content>29 IU/L<content styleCode="Italic s"> (14-36 IU/L)</content> Alkaline 38-126 <content [facility] phosphatase styleCode="Bold"> Michelle [Enzymatic Alkaline Medical activity/volume] Phosphatase (ALP) Cente r in Serum or Plasma </content>115 IU/L<content styleCode="Italic s"> (38-126 IU/L)</content> Alanine 7-30 <content [facility] aminotransferase styleCode="Bold"> Rodrigue hs [Enzymatic Alanine Medical activity/volume] Aminotransferase Center in Serum or Plasma (ALT) </content>25 IU/L<content styleCode="Italic s"> (7-30 IU/L)</content> Bilirubin.total 0.2-1.3 <content [facility] [Mass/volume] in styleCode="Bold"> Rodrigue hs Serum or Plasma Bilirubin Total Medical </content>0.7 Center MG/DL<content styleCode="Italic s"> (0.2-1.3 MG/DL)</content> Albumin 3.5-5.0 <content Saint [Mass/volume] in styleCode="Bold"> Rodrigue hs Serum or Plasma Albumin Medical </content>4.3 Center G/DL<content styleCode="Italic s"> (3.5-5.0 G/DL)</content> ID Date Data Source LIPID 05/21/2018 09:52:00 AM [facility] Name Value Range Interpretation Description Data Sup porting Code Source(s) Document(s ) Triglyceride < 150 <content Saint [Mass/volume] in styleCode="[facility] Serum or Plasma d">Triglycerid [facility] Center </content>122 MG/DL<content styleCode="Tabby lics"> (< 150 MG/DL)</conten t> Cholesterol -<200 <content Saint [Mass/volume] in styleCode="Kortney Michelle Serum or Plasma d">Cholesterol Medical </content>176 Center MG/DL<content styleCode="Tabby lics"> (-<200 MG/DL)</conten t> UNK > 60 Below low normal <content Saint styleCode="Kortney Michelle d">HDL- Medical Cholesterol Center </content>42 MG/DL L<content styleCode="Tabby lics"> (> 60 MG/DL)</conten t> UNK < 100 Above high normal <content Saint styleCode="Kortney Michelle d">LDL-Cholest [facility] machelle [place] </content>110 MG/DL H<content styleCode="Tabby lics"> (< 100 MG/DL)</conten t> ID Date Data Source HematologyRou 05/21/2018 09:52:00 AM [facility] Name Value Range Interpretation Description Data Sup porting Code Source(s) Document(s ) Leukocytes 4.4-11.0 <content Saint [#/volume] in styleCode="Bold Michelle Blood by ">White Blood Medical Automated count Cell Count Center </content>7.42 KCUMM<content styleCode="Ital ics"> (4.4-11.0 KCUMM)</content > Hemoglobin 12.3-16. <content Saint [Mass/volume] in 0 styleCode="Bold Michelle Blood ">Hemoglobin Medical </content>14.1 Center G/DL<content styleCode="Ital ics"> (12.3-16.0 G/DL)</content> Erythrocyte mean 80.0-100 <content Saint corpuscular .0 styleCode="Bold Michelle volume [Entitic ">Mean Medical volume] by Corpuscular Center Automated count Volume </content>84.4 FL<content styleCode="Ital ics"> (80.0-100.0 FL)</content> Hematocrit 36.0-46. <content Saint [Volume 0 styleCode="Bold Michelle Fraction] of ">Hematocrit Medical Blood by </content>41.8 Center Automated count %<content styleCode="Ital ics"> (36.0-46.0 %)</content> Erythrocytes 4.0-5.1 <content Saint [#/volume] in styleCode="Bold Michelle Blood by ">Red Blood Medical Automated count Cell Count Center </content>4.95 MCUMM<content styleCode="Ital ics"> (4.0-5.1 MCUMM)</content > Erythrocyte mean 32.0-37. <content Saint corpuscular 0 styleCode="Bold Michelle hemoglobin ">Mean Corpus. Medical concentration Hgb Center [Mass/volume] by Concentration Automated count (MCHC) </content>33.7 G/DL<content styleCode="Ital ics"> (32.0-37.0 G/DL)</content> Erythrocyte mean 26.0-34. <content Saint corpuscular 0 styleCode="Bold Michelle hemoglobin ">Mean Medical [Entitic mass] Corposcular Center by Automated Hemoglobin count </content>28.5 PG<content styleCode="Ital ics"> (26.0-34.0 PG)</content> Erythrocyte 11.5-14. <content Saint distribution 5 styleCode="Bold Michelle width [Ratio] by ">Red Cell Medical Automated count Distribution Center Width </content>13.0 %<content styleCode="Ital ics"> (11.5-14.5 %)</content> Platelets 130-400 <content Saint [#/volume] in styleCode="Bold Michelle Blood by ">Platelet Medical Automated count Count Center </content>224 KCUMM<content styleCode="Ital ics"> (130-400 KCUMM)</content > Platelet mean 8.0-11.0 <content Saint volume [Entitic styleCode="Bold [facility] volume] in Blood ">Mean Platelet Medical by Automated Volume Center count </content>10.0 FL<content styleCode="Ital ics"> (8.0-11.0 FL)</content> UNK 0 <content [facility] styleCode="Bold Michelle ">Nucleated Red Medical Blood Cell Center </content>0.0 /100<content styleCode="Ital ics"> (0 /100)</content> UNK 0.0 <content [facility] styleCode="Bold Michelle ">Nucleated Red Medical Blood Cell Center Count </content>0.00 KCUMM<content styleCode="Ital ics"> (0.0 KCUMM)</content > ID Date Data Source GFR(Creatinine) 05/21/2018 09:52:00 AM [facility] Name Value Range Interpretation Code Description Data Haley rce(s) Supporting Document(s ) UNK > 60 <content [facility] styleCode="Bold"> Medical Cent er EGFR </content>136 GFR<content styleCode="Italic s"> (> 60 GFR)</content> ID Date Data Source CHMROUTINECCDA 05/21/2018 09:52:00 AM [facility] Name Value Range Interpretation Description Data Sup porting Code Source(s) Document(s ) UNK >= 1.0 <content [facility] styleCode="Bold Medical ">AG Ratio Center </content>1.3 NM<content styleCode="Ital ics"> (>= 1.0 NM)</content> UNK 2.3-3.5 <content [facility] styleCode="Bold Medical ">Globulin Center </content>3.2 G/DL<content styleCode="Ital ics"> (2.3-3.5 G/DL)</content> Protein 6.3-8.2 <content [facility] [Mass/volum styleCode="Bold Medical e] in Serum ">Total Protein Center or Plasma </content>7.5 G/DL<content styleCode="Ital ics"> (6.3-8.2 G/DL)</content> ID Date Data Source [facility] 05/21/2018 09:52:00 AM EST [facility] Name Value Range Interpretation Description Data Sup porting Code Source(s) Document(s ) Chloride 98-107 <content Saint [Moles/volume] in styleCode="Bold"> [place] phs Serum or Plasma Chloride Medical </content>101 Center MEQ/L<content styleCode="Italic s"> (98-107 MEQ/L)</content> Sodium 137-145 <content Saint [Moles/volume] in styleCode="Bold"> [place] phs Serum or Plasma Sodium Medical </content>139 Center MEQ/L<content styleCode="Italic s"> (137-145 MEQ/L)</content> Potassium 3.5-5.3 <content Saint [Moles/volume] in styleCode="Bold"> [place] phs Serum or Plasma Potassium Medical </content>4.5 Center MEQ/L<content styleCode="Italic s"> (3.5-5.3 MEQ/L)</content> Calcium 8.4-10. <content Saint [Mass/volume] in 2 styleCode="Bold"> Rodrigue hs Serum or Plasma Calcium Medical </content>9.0 Center MG/DL<content styleCode="Italic s"> (8.4-10.2 MG/DL)</content> UNK 7-17 <content Saint styleCode="Bold"> [facility] BUN </content>12 Medical MG/DL<content Center styleCode="Italic s"> (7-17 MG/DL)</content> Glucose 74-106 Above high <content Saint [Mass/volume] in normal styleCode="Bold"> Rodrigue hs Serum or Plasma Glucose Medical </content>195 Center MG/DL H<content styleCode="Italic s"> (74-106 MG/DL)</content> Creatinine 0.5-1.3 <content Saint [Mass/volume] in styleCode="Bold"> Rodrigue hs Serum or Plasma Creatinine Medical </content>0.5 Center MG/DL<content styleCode="Italic s"> (0.5-1.3 MG/DL)</content> Carbon dioxide, 22-30 Above high <content Saint total normal styleCode="Bold"> Michelle [Moles/volume] in Carbon Dioxide Medical Serum or Plasma </content>31 Center MEQ/L H<content styleCode="Italic s"> (22-30 MEQ/L)</content> Alanine 7-30 <content Saint aminotransferase styleCode="Bold"> Rodrigue hs [Enzymatic Alanine Medical activity/volume] Aminotransferase Center in Serum or Plasma (ALT) </content>25 IU/L<content styleCode="Italic s"> (7-30 IU/L)</content> Alkaline 38-126 <content Saint phosphatase styleCode="Bold"> Michelle [Enzymatic Alkaline Medical activity/volume] Phosphatase (ALP) Cente r in Serum or Plasma </content>115 IU/L<content styleCode="Italic s"> (38-126 IU/L)</content> UNK > 60 <content Saint styleCode="Bold"> Michelle EGFR Medical </content>136 Center GFR<content styleCode="Italic s"> (> 60 GFR)</content> Aspartate 14-36 <content Saint aminotransferase styleCode="Bold"> Rodrigue hs [Enzymatic Aspartate Medical activity/volume] Aminotransferase Center in Serum or Plasma (AST) </content>29 IU/L<content styleCode="Italic s"> (14-36 IU/L)</content> Bilirubin.total 0.2-1.3 <content Saint [Mass/volume] in styleCode="Bold"> Rodrigue hs Serum or Plasma Bilirubin Total Medical </content>0.7 Center MG/DL<content styleCode="Italic s"> (0.2-1.3 MG/DL)</content> Albumin 3.5-5.0 <content Saint [Mass/volume] in styleCode="Bold"> Rodrigue hs Serum or Plasma Albumin Medical </content>4.3 Center G/DL<content styleCode="Italic s"> (3.5-5.0 G/DL)</content> ID Date Data Source Liver 01/27/2018 10:08:00 AM EDT [facility] Profile.[id number] Name Value Range Interpretation Description Data Sup porting Code Source(s) Document(s ) Alanine 7-30 <content Saint aminotransferase styleCode="Bold"> Rodrigue hs [Enzymatic Alanine Medical activity/volume] Aminotransferase Center in Serum or Plasma (ALT) </content>22 IU/L<content styleCode="Italic s"> (7-30 IU/L)</content> Aspartate 14-36 <content Saint aminotransferase styleCode="Bold"> Rodrigue hs [Enzymatic Aspartate Medical activity/volume] Aminotransferase Center in Serum or Plasma (AST) </content>35 IU/L<content styleCode="Italic s"> (14-36 IU/L)</content> Bilirubin.total 0.2-1.3 <content Saint [Mass/volume] in styleCode="Bold"> Rodrgiue hs Serum or Plasma Bilirubin Total Medical </content>0.6 Center MG/DL<content styleCode="Italic s"> (0.2-1.3 MG/DL)</content> Alkaline 38-126 <content Saint phosphatase styleCode="Bold"> Michelle [Enzymatic Alkaline Medical activity/volume] Phosphatase (ALP) Cente r in Serum or Plasma </content>111 IU/L<content styleCode="Italic s"> (38-126 IU/L)</content> Albumin 3.5-5.0 <content Saint [Mass/volume] in styleCode="Bold"> Rodrigue hs Serum or Plasma Albumin Medical </content>4.3 Center G/DL<content styleCode="Italic s"> (3.5-5.0 G/DL)</content> ID Date Data Source LIPID.[id number] 01/27/2018 10:08:00 AM [facility] Name Value Range Interpretation Description Data Sup porting Code Source(s) Document(s ) Triglyceride < 150 Above high normal <content Saint [Mass/volume] in styleCode="Kortney [facility] Serum or Plasma d">Triglycerid Medical Center </content>154 MG/DL H<content styleCode="Tabby lics"> (< 150 MG/DL)</conten t> Cholesterol -<200 Above high normal <content Saint [Mass/volume] in styleCode="[facility] Serum or Plasma d">Cholesterol Medical </content>216 Center MG/DL H<content styleCode="Tabby lics"> (-<200 MG/DL)</conten t> UNK < 100 Above high normal <content Saint styleCode="[facility] d">LDL-Cholest Medical machelle Center </content>140 MG/DL H<content styleCode="Tabby lics"> (< 100 MG/DL)</conten t> UNK > 60 Below low normal <content Saint styleCode="[facility] d">HDL- Medical Cholesterol Center </content>45 MG/DL L<content styleCode="Tabby lics"> (> 60 MG/DL)</conten t> ID Date Data Source HematologyRou.[id number] 01/27/2018 10:08:00 AM EDT [facility] 0400 Name Value Range Interpretation Description Data Sup porting Code Source(s) Document(s ) Erythrocytes 4.0-5.1 <content Saint [#/volume] in styleCode="[facility] Blood by ">Red Blood Medical Automated count Cell Count Center </content>5.05 MCUMM<content styleCode="Ital ics"> (4.0-5.1 MCUMM)</content > Leukocytes 4.4-11.0 <content Saint [#/volume] in styleCode="Bold Michelle Blood by ">White Blood Medical Automated count Cell Count Center </content>7.39 KCUMM<content styleCode="Ital ics"> (4.4-11.0 KCUMM)</content > Erythrocyte mean 26.0-34. <content [facility] corpuscular 0 styleCode="Bold Michelle hemoglobin ">Mean Medical [Entitic mass] Corposcular Center by Automated Hemoglobin count </content>28.7 PG<content styleCode="Ital ics"> (26.0-34.0 PG)</content> Erythrocyte mean 80.0-100 <content [facility] corpuscular .0 styleCode="Bold Michelle volume [Entitic ">Mean Medical volume] by Corpuscular Center Automated count Volume </content>84.8 FL<content styleCode="Ital ics"> (80.0-100.0 FL)</content> Hematocrit 36.0-46. <content Saint [Volume 0 styleCode="Bold Mcihelle Fraction] of ">Hematocrit Medical Blood by </content>42.8 Center Automated count %<content styleCode="Ital ics"> (36.0-46.0 %)</content> Hemoglobin 12.3-16. <content [facility] [Mass/volume] in 0 styleCode="Bold Michelle Blood ">Hemoglobin Medical </content>14.5 Center G/DL<content styleCode="Ital ics"> (12.3-16.0 G/DL)</content> Platelets 130-400 <content Saint [#/volume] in styleCode="Bold Michelle Blood by ">Platelet Medical Automated count Count Center </content>259 KCUMM<content styleCode="Ital ics"> (130-400 KCUMM)</content > Erythrocyte 11.5-14. <content [facility] distribution 5 styleCode="Bold Michelle width [Ratio] by ">Red Cell Medical Automated count Distribution Center Width </content>12.9 %<content styleCode="Ital ics"> (11.5-14.5 %)</content> Erythrocyte mean 32.0-37. <content [facility] corpuscular 0 styleCode="Bold Michelle hemoglobin ">Mean Corpus. Medical concentration Hgb Center [Mass/volume] by Concentration Automated count (MCHC) </content>33.9 G/DL<content styleCode="Ital ics"> (32.0-37.0 G/DL)</content> Platelet mean 8.0-11.0 <content Saint volume [Entitic styleCode="Bold Michelle volume] in Blood ">Mean Platelet Medical by Automated Volume Center count </content>10.0 FL<content styleCode="Ital ics"> (8.0-11.0 FL)</content> UNK 0 <content Saint styleCode="Bold Michelle ">Nucleated Red Medical Blood Cell Center </content>0.0 /100<content styleCode="Ital ics"> (0 /100)</content> UNK 0.0 <content Saint styleCode="Bold Michelle ">Nucleated Red Medical Blood Cell Center Count </content>0.00 KCUMM<content styleCode="Ital ics"> (0.0 KCUMM)</content > ID Date Data Source GFR(Creatinine).[id number] 01/27/2018 10:08:00 AM EDT [facility] 0-0400 Name Value Range Interpretation Code Description Data Haley rce(s) Supporting Document(s ) UNK > 60 <content [facility] styleCode="Bold"> Medical Cent er EGFR </content>176 GFR<content styleCode="Italic s"> (> 60 GFR)</content> ID Date Data Source CHMROUTINECCDA.[id number] 01/27/2018 10:08:00 AM EDT [facility] -0400 Name Value Range Interpretation Description Data Sup porting Code Source(s) Document(s ) UNK >= 1.0 <content Saint styleCode="Kortney Michelle d">AG Ratio Medical </content>1.2 Center NM<content styleCode="Tabby lics"> (>= 1.0 NM)</content> UNK 2.3-3.5 Above high normal <content Saint styleCode="Kortney Michelle d">Globulin Medical </content>3.6 Center G/DL H<content styleCode="Tabby lics"> (2.3-3.5 G/DL)</content > UNK 4.2-5.8 Above high normal <content Saint styleCode="Kortney Michelle d">Hemoglobin Medical A1C Center </content>10.6 % H<content styleCode="Tabby lics"> (4.2-5.8 %)</content> UNK Not <content Saint Established styleCode="Kortney Michelle d">Microalbumi Medical n Center </content>0.3 mg/dL<content styleCode="Tabby lics"> (Not Established mg/dL)</conten t> Protein 6.3-8.2 <content [facility] [Mass/volu styleCode="Kortney Martinez me] in d">Total Medical Serum or Protein Center Plasma </content>7.9 G/DL<content styleCode="Tabby lics"> (6.3-8.2 G/DL)</content > ID Date Data Source [id number] 01/27/2018 10:08:00 AM EDT [facility] Name Value Range Interpretation Description Data Sup porting Code Source(s) Document(s ) Potassium 3.5-5.3 <content [facility] [Moles/volume] in styleCode="Bold"> [place] phs Serum or Plasma Potassium Medical </content>4.8 Center MEQ/L<content styleCode="Italic s"> (3.5-5.3 MEQ/L)</content> Sodium 137-145 <content [facility] [Moles/volume] in styleCode="Bold"> [place] phs Serum or Plasma Sodium Medical </content>138 Center MEQ/L<content styleCode="Italic s"> (137-145 MEQ/L)</content> Carbon dioxide, 22-30 Above high <content Saint total normal styleCode="Bold"> Michelle [Moles/volume] in Carbon Dioxide Medical Serum or Plasma </content>31 Center MEQ/L H<content styleCode="Italic s"> (22-30 MEQ/L)</content> Chloride 98-107 <content [facility] [Moles/volume] in styleCode="Bold"> [place] phs Serum or Plasma Chloride Medical </content>99 Center MEQ/L<content styleCode="Italic s"> (98-107 MEQ/L)</content> Creatinine 0.5-1.3 Below low <content [facility] [Mass/volume] in normal styleCode="Bold"> Rodrig[place] hs Serum or Plasma Creatinine Medical </content>0.4 Center MG/DL L<content styleCode="Italic s"> (0.5-1.3 MG/DL)</content> UNK 7-17 <content Saint styleCode="Bold"> Michelle BUN </content>10 Medical MG/DL<content Center styleCode="Italic s"> (7-17 MG/DL)</content> UNK > 60 <content Saint styleCode="Bold"> Michelle EGFR Medical </content>176 Center GFR<content styleCode="Italic s"> (> 60 GFR)</content> Glucose 74-106 Above high <content Saint [Mass/volume] in normal styleCode="Bold"> Rodrig[place] hs Serum or Plasma Glucose Medical </content>135 Center MG/DL H<content styleCode="Italic s"> (74-106 MG/DL)</content> Calcium 8.4-10. <content [facility] [Mass/volume] in 2 styleCode="Bold"> Rodrig[place] hs Serum or Plasma Calcium Medical </content>9.2 Center MG/DL<content styleCode="Italic s"> (8.4-10.2 MG/DL)</content> Alanine 7-30 <content [facility] aminotransferase styleCode="Bold"> Rodrig[place] hs [Enzymatic Alanine Medical activity/volume] Aminotransferase Center in Serum or Plasma (ALT) </content>22 IU/L<content styleCode="Italic s"> (7-30 IU/L)</content> Aspartate 14-36 <content [facility] aminotransferase styleCode="Bold"> [place] hs [Enzymatic Aspartate Medical activity/volume] Aminotransferase Center in Serum or Plasma (AST) </content>35 IU/L<content styleCode="Italic s"> (14-36 IU/L)</content> Alkaline 38-126 <content [facility] phosphatase styleCode="Bold"> Michelle [Enzymatic Alkaline Medical activity/volume] Phosphatase (ALP) Cente r in Serum or Plasma </content>111 IU/L<content styleCode="Italic s"> (38-126 IU/L)</content> Albumin 3.5-5.0 <content [facility] [Mass/volume] in styleCode="Bold"> Rodrigue hs Serum or Plasma Albumin Medical </content>4.3 Center G/DL<content styleCode="Italic s"> (3.5-5.0 G/DL)</content> Bilirubin.total 0.2-1.3 <content [facility] [Mass/volume] in styleCode="Bold"> Rodrig[place] hs Serum or Plasma Bilirubin Total Medical </content>0.6 Center MG/DL<content styleCode="Italic s"> (0.2-1.3 MG/DL)</content> Procedure Social History Code Duration Value Status Description Data Source(s ) 05/20/2018 Current completed Current NEXTGEN ([facility] 12:00:00 AM EST non-smoker non-smoker [facility]) Caffeine Use 03/30/2018 completed NEXTGEN (Gio nt Details 12:00:00 AM EST [facility]) Smoking 03/30/2018 Unknown if completed Unknown if ever NEXTGEN ( [facility] 12:00:00 AM EST ever smoked smoked [facility]) Smoking Unknown if completed Unknown if ever [facility] ever smoked smoked Medical Cent[facility] r [facility]) Vital Signs ID Date Data Source UNK Name Value Range Interpretation Code Description Data Source(s) Oxygen saturation 98 % 98 % NEXTGEN ([facility] in Arterial blood [facility] by Pulse oximetry Center) Body mass index 31.99 kg/m2 Overweight 31.99 kg/m2 NEXTGEN ([facility] (BMI) [Ratio] [facility]) Respiratory rate 18 /min 18 /min [facility] ([facility]) Body temperature 37.06 Angy 37.06 Angy [facility] ([facility]) Heart rate 68 /min 68 /min [facility] ([facility]) Diastolic blood 72 mm[Hg] 72 mm[Hg] [facility] ( [facility] pressure [facility]) Systolic blood 123 mm[Hg] 123 mm[Hg] [facility] ([facility]) Body weight 65.317 kg 65.317 kg [facility] ([facility]) Body height 142.90 cm 142.90 cm [facility] ([facility]) Respiratory rate 16 /min 16 /min [facility] ([facility]) Body temperature 36.72 Angy 36.72 Angy [facility] ([facility]) Heart rate 67 /min 67 /min [facility] ([facility]) Diastolic blood 81 mm[Hg] 81 mm[Hg] [facility] ( [facility] pressure [facility]) Systolic blood 133 mm[Hg] 133 mm[Hg] NEXTGEN (S aint pressure [facility]) Body height 142.90 cm 142.90 cm NEXTGEN (Jose t [facility]) Patient Treatment Plan of Care Planned Activity Planned Date Details Description Data Source (s) Zofran 4mg/2mL (Onda 07/23/2019 [facility] 06:26:51 PM [facility] 0.9% NaCl IV 07/23/2019 [facility] (Acetaminoph 07/23/2019 [facility] 06:07:55 PM [facility] Dextromethorphan 05/20/2018 NEXTGEN (Sa int Hydrobromide 3 MG/ML / 12:00:00 AM [facility] doxylamine succinate 1.25 Ce nter) MG/ML Oral Solution [Robitussin Nighttime Cough DM] Clotrimazole 10 MG/ML 03/30/2018 NEXTGE N (Saint Topical Solution 12:00:00 AM [facility]) Clotrimazole 10 MG/ML 03/30/2018 NEXTGE N ([facility] Topical Cream 12:00:00 AM [facility]) atorvastatin 20 MG Oral 02/26/2018 NEXT GEN ([facility] Tablet 12:00:00 AM [facility]) insulin human, isophane 70 02/26/2018 N EXTGEN (Saint UNT/ML / Regular Insulin, 12:00:00 AM [facility] Human 30 UNT/ML Injectable C enter) Suspension [Novolin]
== END 2020-01-22 22:53 | disposition home or self-care (01) ==
LOC: FER 22:28
DX: R04.0 Epistaxis (principal)
CPT/HCPCS: 99283-25

== ENCOUNTER 2023-09-26 08:12 | Emergency (ER) | payer OTHER ==
[2023-09-26 08:23] VITALS: BP 134/80; PULSE 95; RESP 16; TEMP 97.8; BMI 28.3
[2023-09-26] MEDS ORDERED: METOCLOPRAMIDE HCL INJECTION 10 MG/2 ML VIAL ONE (08:40)
[2023-09-26] MEDS ORDERED: ACETAMINOPHEN INJECTION 100 ML IVPB ONE (08:40)
[2023-09-26] MEDS ORDERED: FAMOTIDINE 20 MG/50 ML IVPB 20 MG/50 ML MG IVPB ONE (08:49)
[2023-09-26] MEDS: SODIUM CHLORIDE 1,000 ML IV ONE (09:04)
[2023-09-26] MEDS: ACETAMINOPHEN 1000 MG/100 ML BAG IVPB ONE (09:04)
[2023-09-26] MEDS: FAMOTIDINE 20 MG/50 ML IVPB 20 MG in PREMIX 50 IVPB ONE (09:05)
[2023-09-26] MEDS: METOCLOPRAMIDE HCL INJECTION 10 MG/2 ML VIAL IVPUSH ONE (09:05)
[2023-09-26 09:29] LABS: HEMATOCRIT 46.1 % (32.4-45.2); HEMOGLOBIN 15.4 G/dL (10.7-15.3); MCH 28.9 pg (25.7-33.7); MCHC 33.5 g/dl (32.0-36.0); MEAN CELL VOLUME 86.5 fl (80-96); MEAN PLT VOLUME 7.6 fl (7.5-11.1); PLATELET COUNT 228.3 10^3/uL (134-434); RBC 5.33 10^6/uL (3.60-5.2); RDW 13.8 % (11.6-15.6); WHITE BLOOD COUNT 12.8 10^3/uL (4.0-10.8)
[2023-09-26 09:32] LABS: ALBUMIN 4.6 g/dl (3.4-5.0); ALK PHOS 110 U/L (45-117); ANION GAP 12 mmol/L (4-13); BILIRUBIN,TOTAL 0.9 mg/dl (0.2-1); CALCIUM 9.6 mg/dl (8.5-10.1); CHLORIDE 99 mmol/L (98-107); CO2 24 mmol/L (21-32); CREATININE 0.7 mg/dl (0.6-1.3); GLUCOSE,RANDOM 188 mg/dl (74-106); POTASSIUM 3.9 mmol/L (3.5-5.1); SGOT/AST 32 U/L (15-37); SGPT/ALT 25 U/L (7-52); SODIUM 135 mmol/L (136-145); TOT PROT 7.7 g/dl (6.4-8.2)
[2023-09-26 09:42] LABS: PLATELET ESTIMATE ADEQUATE
[2023-09-26] MEDS: LACTATED RINGERS SOLUTION 1,000 ML/1,000 ML INFUS.BAG IV SCH (11:57)
== END 2023-09-26 14:57 | disposition home or self-care (01) ==
LOC: FER 08:12
PROC: 3E033GC Introduction of Other Therapeutic Substance into Peripheral Vein, Percutaneous Approach (ICD-10-PCS; principal; 2023-09-26)
PROC: 3E033GC Introduction of Other Therapeutic Substance into Peripheral Vein, Percutaneous Approach (ICD-10-PCS; 2023-09-26)
PROC: 3E033NZ Introduction of Analgesics, Hypnotics, Sedatives into Peripheral Vein, Percutaneous Approach (ICD-10-PCS; 2023-09-26)
DX: R19.7 Diarrhea, unspecified (principal); R11.2 Nausea with vomiting, unspecified; R10.9 Unspecified abdominal pain; R51.9 Headache, unspecified
CPT/HCPCS: 36415; 80053; 81003; 81015; 83690; 84484; 85027; 93005; 99284-25; J0131